=== PATIENT | male | born 1980 | race Caucasian/White ===

== ENCOUNTER 2018-04-20 02:58 | Emergency (ER) | payer MEDICAID ==
[~2018-04-20] VITALS: Ht 172.7 cm; Wt 63.6 kg
[2018-04-20 03:02] VITALS: BP 126/84
[2018-04-20] MEDS ORDERED: normal saline 1000ML IV soln IVB ONE (03:15)
[2018-04-20 03:29] LABS: BASOPHILS # (AUTO) 0.1 X10'3 (0-0.2); BASOPHILS % (AUTO) 0.5 % (0-1); EOSINOPHILS # (AUTO) 0.2 X10'3 (0-0.9); EOSINOPHILS % (AUTO) 1.9 % (0-6); HEMATOCRIT 45.8 % (42.0-52.0); HEMOGLOBIN 15.3 g/dl (14.0-17.9); LYMPHOCYTES # (AUTO) 0.9 X10'3 (1.1-4.8); LYMPHOCYTES % (AUTO) 7.7 % (21-51); MEAN CORPUSCULAR HGB CONC 33.5 % (33.0-36.5); MEAN CORPUSCULAR VOLUME 89.5 FL (78-98); MEAN PLATELET VOLUME 7.5 FL (7.4-10.4); MONOCYTES # (AUTO) 0.7 X10'3 (0-0.9); NEUTROPHILS # (AUTO) 9.5 X10'3 (1.8-7.7); NEUTROPHILS % (AUTO) 83.9 % (42-75); PLATELET COUNT 412 X10'3 (140-440); RED BLOOD COUNT 5.11 X10'6 (4.70-6.10); WHITE BLOOD COUNT 11.3 X10'3 (4.5-11.0)
[2018-04-20 03:38] LABS: CLARITY,URINE CLEAR (Clear); COLOR,URINE YELLOW (Yellow); GLUCOSE, URINE >=1000 mg/dl (Neg); KETONES,URINE 40 mg/dl (Neg); LEUKOCYTE ESTERASE ,URINE NEGATIVE (Neg); NITRITES, URINE NEGATIVE (Neg); OCCULT BLOOD,URINE NEGATIVE (Neg); PROTEIN,URINE NEGATIVE (Neg); UA COLLECTION TYPE CLN CATCH MIDSTREAM; UROBILINOGEN,URINE 0.2 E.U/dL (0.2-1.0)
[2018-04-20 03:44] LABS: ALANINE AMINOTRANSFERASE 28 U/L (12-78); ALBUMIN 3.8 G/DL (3.4-5.0); ALKALINE PHOSPHATASE 106 IU/L (46-116); ANION GAP 20 (8-16); ASPARTATE AMINO TRANSFERASE 18 U/L (10-37); BILIRUBIN,TOTAL 0.7 MG/DL (0.1-1.0); BLOOD UREA NITROGEN 25 MG/DL (7-18); BUN/CREATININE RATIO 16.4 (5.4-32.0); CALCIUM 9.4 MG/DL (8.5-10.1); CHLORIDE 87 MMOL/L (99-107); CREATININE 1.52 MG/DL (0.60-1.10); LIPASE 68 U/L (73-393); PHOSPHORUS 5.3 MG/DL (2.3-4.5); POTASSIUM 4.7 MMOL/L (3.5-5.1); SODIUM 129 MMOL/L (135-145); TOTAL CARBON DIOXIDE 22.3 MMOL/L (24-32); TOTAL PROTEIN 7.5 G/DL (6.4-8.2); eGFR 51 ML/MIN
[2018-04-20 03:46] LABS: BACTERIA,URINE NONE SEEN /HPF (Neg); MUCUS STRANDS NONE SEEN /LPF (Neg); RBC,URINE NONE SEEN /HPF (0-2); SQUAMOUS EPITHELIAL CELL,UR FEW /LPF (FEW); WBC,URINE NONE SEEN /HPF (0-4)
[2018-04-20 03:48] LABS: GLUCOSE 711 MG/DL (70-104)
[2018-04-20] MEDS ORDERED: insulin regular, DKA only 100 UNIT in normal saline 100ml IV soln 99 ML IV SCH ×2 (03:50)
[2018-04-20] MEDS ORDERED: mag hydrox/Alum hydrox/simeth 30ml oral suspension PO ONE (04:55)
== END 2018-04-20 05:42 | disposition left against medical advice (07) ==
LOC: ER 02:59
DX: E11.10 Type 2 diabetes mellitus with ketoacidosis without coma (principal); F15.90 Other stimulant use, unspecified, uncomplicated
CPT/HCPCS: 36415; 80053; 81001; 82800; 82947; 82948; 83690; 84100; 85025; 96365; 99284; A6257; J1815; J7030

== ENCOUNTER 2019-04-18 01:04 | Emergency (ER) | payer MEDICAID ==
[~2019-04-18] VITALS: Ht 172.7 cm; Wt 45.5 kg
[~2019-04-18 01:04] MED LIST: GLARGINE INSULIN SQ; NICO-631 TD; RANI150C4 PO; [UNRECOGNIZED DRUG - OTHER] SQ
[2019-04-18] MEDS ORDERED: ketorolac trometh inj. 60 MG/2 ML VIAL IM ONE (01:50)
[2019-04-18] MEDS ORDERED: ondansetron 4mg rapidly disintigrating tab PO ONE (01:50)
--- NOTE | 2019-04-18 01:59 | NUR ---
Back from CT.
[2019-04-18 02:21] LABS: BASOPHILS % (AUTO) 0.5 % (0-1); EOSINOPHILS # (AUTO) 0.1 X10'3 (0-0.9); EOSINOPHILS % (AUTO) 0.9 % (0-6); HEMATOCRIT 40.7 % (42.0-52.0); HEMOGLOBIN 14.2 g/dl (14.0-17.9); LYMPHOCYTES # (AUTO) 1.2 X10'3 (1.1-4.8); LYMPHOCYTES % (AUTO) 14.5 % (21-51); MEAN CORPUSCULAR HEMOGLOBIN 30.5 PG (27.0-31.0); MEAN CORPUSCULAR HGB CONC 34.9 g/dL (33.0-36.5); MEAN CORPUSCULAR VOLUME 87.5 FL (78-98); MEAN PLATELET VOLUME 7.3 FL (7.4-10.4); MONOCYTES # (AUTO) 0.8 X10'3 (0-0.9); MONOCYTES % (AUTO) 10.3 % (2-12); NEUTROPHILS % (AUTO) 73.8 % (42-75); PLATELET COUNT 350 X10'3 (140-440); RED BLOOD COUNT 4.64 X10'6 (4.70-6.10); RED CELL DISTRIBUTION WIDTH 12.2 % (11.5-14.5); WHITE BLOOD COUNT 8.1 X10'3 (4.5-11.0)
--- NOTE | 2019-04-18 02:21 | NUR ---
Patient laying on gurney, still reports abdominal pain/nausea. Zofran and Toradol were given, I will continue to monitor.
[2019-04-18 02:36] LABS: ALANINE AMINOTRANSFERASE 20 U/L (12-78); ALBUMIN 3.3 G/DL (3.4-5.0); ALBUMIN/GLOBULIN RATIO 0.7 (1.1-1.5); ALKALINE PHOSPHATASE 116 IU/L (46-116); ANION GAP 9 (8-16); ASPARTATE AMINO TRANSFERASE 13 U/L (10-37); BILIRUBIN,TOTAL 0.4 MG/DL (0.1-1.0); BLOOD UREA NITROGEN 13 MG/DL (7-18); BUN/CREATININE RATIO 14.9 (5.4-32.0); CALCIUM 9.3 MG/DL (8.5-10.1); CHLORIDE 98 MMOL/L (99-107); CREATININE 0.87 MG/DL (0.60-1.10); GLUCOSE 265 MG/DL (70-104); LIPASE 485 U/L (73-393); POTASSIUM 3.8 MMOL/L (3.5-5.1); SODIUM 136 MMOL/L (135-145); TOTAL CARBON DIOXIDE 29.4 MMOL/L (24-32); TOTAL PROTEIN 7.8 G/DL (6.4-8.2); eGFR > 90 ML/MIN
[2019-04-18] MEDS ORDERED: normal saline 1000ML IV soln IVB ONE (02:55)
[2019-04-18] MEDS ORDERED: morphine 4 MG/ML inj SYRINge IV ONE (02:55)
[2019-04-18] MEDS ORDERED: ondansetron/PF 4mg/2ml inj IV ONE (02:55)
[2019-04-18 03:01] LABS: CLARITY,URINE CLEAR (Clear); COLOR,URINE YELLOW (Yellow); GLUCOSE, URINE >=1000 mg/dl (Neg); KETONES,URINE 15 mg/dl (Neg); LEUKOCYTE ESTERASE ,URINE NEGATIVE (Neg); NITRITES, URINE NEGATIVE (Neg); OCCULT BLOOD,URINE NEGATIVE (Neg); PROTEIN,URINE NEGATIVE (Neg)
[2019-04-18 03:17] LABS: UA COLLECTION TYPE CLN CATCH MIDSTREAM
[2019-04-18 03:26] LABS: BACTERIA,URINE NONE SEEN /HPF (Neg); MUCUS STRANDS NONE SEEN /LPF (Neg); RBC,URINE 0-2 /HPF (0-2); SQUAMOUS EPITHELIAL CELL,UR NONE SEEN /LPF (FEW); WBC,URINE 0-4 /HPF (0-4)
[2019-04-18] MEDS ORDERED: HYDR-3965 PO (03:40)
[2019-04-18 03:43] VITALS: BP 131/79
== END 2019-04-18 03:48 | disposition home or self-care (01) ==
LOC: ER 01:05
DX: K85.90 Acute pancreatitis without necrosis or infection, unspecified (principal); E11.65 Type 2 diabetes mellitus with hyperglycemia; K02.9 Dental caries, unspecified; K21.9 Gastro-esophageal reflux disease without esophagitis; F17.200 Nicotine dependence, unspecified, uncomplicated; F12.90 Cannabis use, unspecified, uncomplicated; F15.90 Other stimulant use, unspecified, uncomplicated; F10.99 Alcohol use, unspecified with unspecified alcohol-induced disorder; Z79.899 Other long term (current) drug therapy; Y90.9 Presence of alcohol in blood, level not specified
CPT/HCPCS: 36415; 74176; 80053; 81001; 82948; 83690; 85025; 96372; 96374; 96375; 99284; J1885; J2270; J2405; J7030

== ENCOUNTER 2019-04-20 19:38 | Emergency (ER) | payer MEDICAID ==
[~2019-04-20] VITALS: Ht 172.7 cm; Wt 61.7 kg
[~2019-04-20 19:38] MED LIST changes: +HYDR-3965 PO
[2019-04-20 20:16] LABS: CLARITY,URINE SLIGHTLY CLOUDY (Clear); COLOR,URINE YELLOW (Yellow); GLUCOSE, URINE >=1000 mg/dl (Neg); KETONES,URINE NEGATIVE (Neg); LEUKOCYTE ESTERASE ,URINE NEGATIVE (Neg); NITRITES, URINE NEGATIVE (Neg); OCCULT BLOOD,URINE NEGATIVE (Neg); PH,URINE 7.5 (4.8-8.0); PROTEIN,URINE NEGATIVE (Neg); UA COLLECTION TYPE CLN CATCH MIDSTREAM
[2019-04-20 20:23] LABS: BACTERIA,URINE NONE SEEN /HPF (Neg); MUCUS STRANDS NONE SEEN /LPF (Neg); RBC,URINE NONE SEEN /HPF (0-2); SQUAMOUS EPITHELIAL CELL,UR NONE SEEN /LPF (FEW); WBC,URINE NONE SEEN /HPF (0-4)
[2019-04-20 20:24] LABS: AMORPHOUS PHOSPHATES 2+
[2019-04-20 20:43] LABS: BASOPHILS % (AUTO) 0.4 % (0-1); EOSINOPHILS # (AUTO) 0.2 X10'3 (0-0.9); EOSINOPHILS % (AUTO) 3.1 % (0-6); HEMATOCRIT 43.5 % (42.0-52.0); LYMPHOCYTES # (AUTO) 1.6 X10'3 (1.1-4.8); LYMPHOCYTES % (AUTO) 22.4 % (21-51); MEAN CORPUSCULAR HEMOGLOBIN 30.7 PG (27.0-31.0); MEAN CORPUSCULAR HGB CONC 34.6 g/dL (33.0-36.5); MEAN CORPUSCULAR VOLUME 88.8 FL (78-98); MEAN PLATELET VOLUME 7.3 FL (7.4-10.4); MONOCYTES # (AUTO) 0.7 X10'3 (0-0.9); MONOCYTES % (AUTO) 10.2 % (2-12); NEUTROPHILS # (AUTO) 4.5 X10'3 (1.8-7.7); NEUTROPHILS % (AUTO) 63.9 % (42-75); PLATELET COUNT 403 X10'3 (140-440); RED BLOOD COUNT 4.89 X10'6 (4.70-6.10); RED CELL DISTRIBUTION WIDTH 12.1 % (11.5-14.5); WHITE BLOOD COUNT 7.1 X10'3 (4.5-11.0)
[2019-04-20 20:59] LABS: ALANINE AMINOTRANSFERASE 22 U/L (12-78); ALBUMIN 3.4 G/DL (3.4-5.0); ALBUMIN/GLOBULIN RATIO 0.7 (1.1-1.5); ALKALINE PHOSPHATASE 128 IU/L (46-116); AMYLASE 30 U/L (25-115); ANION GAP 10 (8-16); ASPARTATE AMINO TRANSFERASE 11 U/L (10-37); BILIRUBIN,TOTAL 0.3 MG/DL (0.1-1.0); BLOOD UREA NITROGEN 13 MG/DL (7-18); BUN/CREATININE RATIO 14.3 (5.4-32.0); CALCIUM 9.4 MG/DL (8.5-10.1); CHLORIDE 99 MMOL/L (99-107); CREATININE 0.91 MG/DL (0.60-1.10); GLUCOSE 305 MG/DL (70-104); LIPASE 173 U/L (73-393); POTASSIUM 4.2 MMOL/L (3.5-5.1); SODIUM 138 MMOL/L (135-145); TOTAL CARBON DIOXIDE 28.8 MMOL/L (24-32); TOTAL PROTEIN 8.1 G/DL (6.4-8.2); eGFR > 90 ML/MIN
[2019-04-20] MEDS ORDERED: normal saline 1000ML IV soln IVB ONE (22:10)
[2019-04-20] MEDS ORDERED: morphine 4 MG/ML inj SYRINge IV ONE (22:10)
--- NOTE | 2019-04-20 22:43 | NUR ---
attempted IV x2, no success, another RN to try, pt is difficult IV start
[2019-04-20 23:57] VITALS: BP 105/70
== END 2019-04-21 | disposition home or self-care (01) ==
LOC: ER 19:38
DX: K85.90 Acute pancreatitis without necrosis or infection, unspecified (principal); K21.9 Gastro-esophageal reflux disease without esophagitis; E11.9 Type 2 diabetes mellitus without complications; F12.90 Cannabis use, unspecified, uncomplicated; F15.90 Other stimulant use, unspecified, uncomplicated; Z79.899 Other long term (current) drug therapy
CPT/HCPCS: 36415; 80053; 81001; 82150; 83690; 85025; 85610; 96374; 99283; J2270; J7030

== ENCOUNTER 2022-03-07 12:20 | Inpatient (IN) | payer MEDICAID ==
[~2022-03-07] VITALS: Ht 172.7 cm; Wt 60.1 kg
[~2022-03-07 12:20] MED LIST changes: -HYDR-3965 PO
[2022-03-07] MEDS ORDERED: ondansetron/PF 4mg/2ml inj IV ONE (13:10)
[2022-03-07] MEDS ORDERED: normal saline 1000ML IV soln IVB ONE (13:10)
[2022-03-07 13:55] LABS: ALANINE AMINOTRANSFERASE 79 U/L (12-78); ALBUMIN 3.8 G/DL (3.4-5.0); ALBUMIN/GLOBULIN RATIO 0.7 (1.1-1.5); ALKALINE PHOSPHATASE 230 IU/L (46-116); ANION GAP 31 (8-16); ASPARTATE AMINO TRANSFERASE 38 U/L (10-37); BILIRUBIN,TOTAL 0.6 MG/DL (0.1-1.0); BLOOD UREA NITROGEN 30 MG/DL (7-18); BUN/CREATININE RATIO 15.1 (5.4-32.0); CHLORIDE 96 MMOL/L (99-107); CREATININE 1.99 MG/DL (0.60-1.10); SODIUM 138 MMOL/L (135-145); TOTAL PROTEIN 8.9 G/DL (6.4-8.2); eGFR 37 ML/MIN
[2022-03-07 13:57] LABS: GLUCOSE 270 MG/DL (70-104); TOTAL CARBON DIOXIDE 11.3 MMOL/L (24-32)
[2022-03-07 14:23] LABS: ABG BASE EXCESS -13.7 mmol/L (-2.0-2.0); ABG HCO3 10.2 mmol/L (22.0-26.0); ABG OXYGEN SATURATION 97.7 % (94-97); ABG PCO2 (T) 20.8 mmHg (35.0-48.0); ABG PO2 (T) 109.2 mmHg (75.0-100.0); ALLEN'S TEST POSITIVE; FCOHb 0.3 % (0.0-3.9); FMetHb 0.1 % (0.0-1.5); FO2Hb 97.3 % (94-97); TOTAL HEMOGLOBIN 13.8 G/dl (14.0-18.0)
[2022-03-07 14:47] LABS: MAGNESIUM 2.1 MG/DL (1.5-2.4)
[2022-03-07 14:47] LABS: BASOPHILS % (AUTO) 0.1 % (0-1); EOSINOPHILS % (AUTO) 0 % (0-6); HEMATOCRIT 46.3 % (42.0-52.0); HEMOGLOBIN 15.9 g/dl (14.0-17.9); LYMPHOCYTES # (AUTO) 0.6 X10'3 (1.1-4.8); LYMPHOCYTES % (AUTO) 4.2 % (21-51); MEAN CORPUSCULAR HGB CONC 34.2 g/dL (33.0-36.5); MEAN CORPUSCULAR VOLUME 90.5 FL (78-98); MEAN PLATELET VOLUME 6.9 FL (7.4-10.4); MONOCYTES % (AUTO) 6.8 % (2-12); NEUTROPHILS # (AUTO) 12.5 X10'3 (1.8-7.7); NEUTROPHILS % (AUTO) 88.9 % (42-75); PLATELET COUNT 423 X10'3 (140-440); RED BLOOD COUNT 5.12 X10'6 (4.70-6.10); RED CELL DISTRIBUTION WIDTH 13.2 % (11.5-14.5); WHITE BLOOD COUNT 14.1 X10'3 (4.5-11.0)
[2022-03-07 14:50] LABS: ETHANOL < 0.010 GM/DL (0.0-0.010)
[2022-03-07] MEDS ORDERED: pantoprazole 40MG/NS 100ML BAG 100 ML IV STA (15:41)
--- NOTE | 2022-03-07 15:45 | NUR ---
PT PRODUCING DARK BROWN/BLACK EMESIS. PROVIDER NOTIFIED. PT REPORTS ABD PAIN.
[2022-03-07] MEDS ORDERED: INSU100I73 SQ (15:46)
[2022-03-07] MEDS ORDERED: GABA300C PO (15:46)
[2022-03-07] MEDS ORDERED: INSU100V40 SQ (15:46)
[2022-03-07 16:21] LABS: URINE AMPHETAMINE SCREEN POSITIVE (Neg); URINE BARBITUATE SCREEN NEGATIVE (Neg); URINE BENZODIAZEPINES SCREEN NEGATIVE (Neg); URINE CANNABINOID SCREEN NEGATIVE (Neg); URINE COCAINE SCREEN NEGATIVE (Neg); URINE METHADONE SCREEN NEGATIVE (Neg); URINE OPIATE SCREEN NEGATIVE (Neg); URINE PHENCYCLIDINE SCREEN NEGATIVE (Neg)
[2022-03-07] MEDS ORDERED: insulin regular, human U-100 3ml vial - multi-dose IV PRN (16:40)
[2022-03-07] MEDS ORDERED: potassium Cl 40MEQ/1/2NS 520ml 520 ML IV PRN ×2 (16:40)
[2022-03-07] MEDS ORDERED: sodium phosphate inj. 30 MMOL in dextrose 5%-water 250 ML IV PRN (16:40)
[2022-03-07] MEDS ORDERED: sodium phosphate inj. 15 MMOL in dextrose 5%-water 250 ML IV PRN (16:40)
[2022-03-07] MEDS ORDERED: sodium bicarbonate (8.4%) inj. 50 MEQ in dextrose 5% water 500ml 250 ML IV PRN (16:40)
[2022-03-07] MEDS ORDERED: sodium bicarbonate (8.4%) inj. 100 MEQ in dextrose 5% water 500ml 500 ML IV PRN (16:40)
[2022-03-07] MEDS ORDERED: potassium Cl 20 mEq SR tablet PO PRN ×2 (16:40)
[2022-03-07] MEDS ORDERED: Insulin Reg/NS 100units/100mL 100 ML IV SCH (16:40)
[2022-03-07] MEDS ORDERED: Neutra Phos packet PO PRN (16:40)
[2022-03-07] MEDS ORDERED: magnesium hydroxide 30ml (MOM) UD suspension PO PRN (16:45)
[2022-03-07] MEDS ORDERED: potassium CL 10mEq/100ml bag 100 ML IV PRN (16:45)
[2022-03-07] MEDS ORDERED: magnesium Cl slow-release 64mg tablet PO PRN (16:45)
[2022-03-07] MEDS ORDERED: sodium bicarbonate (8.4%) 1 mEq/ml syringe IV ONE (16:45)
[2022-03-07] MEDS ORDERED: magnesium 2GM in 50ml NS 50 ML IV PRN (16:45)
[2022-03-07] MEDS ORDERED: ondansetron/PF 4mg/2ml inj IV PRN (16:45)
[2022-03-07] MEDS ORDERED: magnesium 4gm in 100ml NS 100 ML IV PRN (16:45)
[2022-03-07] MEDS ORDERED: acetaminophen 325mg tablet PO PRN (16:45)
[2022-03-07] MEDS ORDERED: POTASSIUM BICARB 20meq eff tab 20 MEQ TABLET.EFF PO PRN ×2 (16:45)
[2022-03-07] MEDS: normal saline 1000ml 1,000 ML IV SCH ×4 (17:19→21:00)
[2022-03-07 18:03] LABS: ALBUMIN 2.8 G/DL (3.4-5.0); ANION GAP 18 (8-16); BLOOD UREA NITROGEN 27 MG/DL (7-18); BUN/CREATININE RATIO 19.6 (5.4-32.0); CALCIUM 8.3 MG/DL (8.5-10.1); CHLORIDE 102 MMOL/L (99-107); CREATININE 1.38 MG/DL (0.60-1.10); GLUCOSE 263 MG/DL (70-104); PHOSPHORUS 3.6 MG/DL (2.3-4.5); POTASSIUM 4.3 MMOL/L (3.5-5.1); SODIUM 136 MMOL/L (135-145); TOTAL CARBON DIOXIDE 16.1 MMOL/L (24-32); eGFR 56 ML/MIN
[2022-03-07] MEDS: potassium CL 20mEq in D5-1/2NS 1,000 ML IV PRN (19:20)
[2022-03-07] MEDS ORDERED: K and/or MAG REPLACEMENT MC SCH (20:00)
[2022-03-07 20:37] VITALS: BP 114/68
[2022-03-07] MEDS: docusate sod 100mg capsule PO SCH (21:00)
[2022-03-07 21:13] LABS: ALBUMIN 2.6 G/DL (3.4-5.0); ANION GAP 13 (8-16); BLOOD UREA NITROGEN 23 MG/DL (7-18); BUN/CREATININE RATIO 16.1 (5.4-32.0); CALCIUM 7.6 MG/DL (8.5-10.1); CHLORIDE 105 MMOL/L (99-107); CREATININE 1.43 MG/DL (0.60-1.10); GLUCOSE 160 MG/DL (70-104); PHOSPHORUS 2.1 MG/DL (2.3-4.5); POTASSIUM 3.8 MMOL/L (3.5-5.1); SODIUM 138 MMOL/L (135-145); TOTAL CARBON DIOXIDE 19.6 MMOL/L (24-32); eGFR 54 ML/MIN
[2022-03-07] MEDS: K and/or MAG REPLACEMENT MC SCH (22:00)
[2022-03-07 22:57] VITALS: BP 113/63
--- NOTE | 2022-03-08 00:22 | NUR ---
Called and spoke with Dr Sotelo in regards to pt's pain and still remaining NPO on on insulin drip. Reviewed last CO2 and gap and next lab at 0100. gave new order for [place] x1 and ok for sips with meds. See charting for details.
[2022-03-08] MEDS ORDERED: HYDROcodone/acetaminophen 5mg/325mg tablet PO ONE (00:30)
[2022-03-08] MEDS: mag hydrox/Alum hydrox/simeth 30ml oral suspension PO PRN ×3 (00:52→19:07)
--- NOTE | 2022-03-08 01:27 | NUR ---
Called Dr. Sotelo in regards to last BS 70 and pt continues to be on insulin drip at 5ml/hr. Also informed that staff is having hard time getting labs. New order given to decrease insulin to 2ml/hr. See orders for details. Addendum: 03/08/22 at 0650 by Waldo Coley RN Corrected *5 units/hr--
[2022-03-08] MEDS: potassium CL 20mEq in D5-1/2NS 1,000 ML IV PRN ×3 (01:33→12:15)
[2022-03-08 02:00] VITALS: BP 96/64
[2022-03-08] MEDS ORDERED: Insulin Reg/NS 100units/100mL 100 ML IV SCH ×2 (02:55→03:45)
--- NOTE | 2022-03-08 03:38 | NUR ---
Called and spoke with Dr. Sotelo in regards to BS 72, still on insulin drip at 2 units/hr. Also informed him unable to get labs and lab staff will try at 0400. New order to decrease insulin drip to 1 unit/hr. See charting for details.
[2022-03-08] MEDS ORDERED: dextrose 50%-water 50ml dispensing syringe IV PRN ×3 (03:45→12:40)
[2022-03-08 04:45] LABS: ALBUMIN 2.5 G/DL (3.4-5.0); ANION GAP 11 (8-16); BLOOD UREA NITROGEN 16 MG/DL (7-18); BUN/CREATININE RATIO 15.8 (5.4-32.0); CALCIUM 7.7 MG/DL (8.5-10.1); CHLORIDE 107 MMOL/L (99-107); CREATININE 1.01 MG/DL (0.60-1.10); GLUCOSE 113 MG/DL (70-104); MAGNESIUM 1.6 MG/DL (1.5-2.4); PHOSPHORUS 1.9 MG/DL (2.3-4.5); POTASSIUM 3.8 MMOL/L (3.5-5.1); SODIUM 140 MMOL/L (135-145); eGFR 80 ML/MIN
--- NOTE | 2022-03-08 05:35 | NUR ---
Called and spoke with Dr. Sotelo in regards to BS at 131 and labs came back with anion gap 11, Co2 22. stated to continue drip at this time. No new orders given.
[2022-03-08 06:00] VITALS: BP 116/79
--- NOTE | 2022-03-08 06:39 | NUR ---
2015 Got report from PATRICIA Do. Pt arrived via gurney in no acute distress. Belongings at bedside. Pt in no acute distress but sleepy. Pt had uneventful night but remained on insulin drip. Pt got [place] x1 and Maalox. 0625 Report given to PATRICIA Estrella. Drips verified in room. Questions answered. Endorsed to nurse pt sleepy and unable to finish all of admission and family hopefully to come in and take home meds today. Questions answered. Pt in no acute distress at time of handoff.
[2022-03-08] MEDS: K and/or MAG REPLACEMENT MC SCH (08:00)
[2022-03-08] MEDS: docusate sod 100mg capsule PO SCH ×2 (08:00→19:07)
[2022-03-08 11:00] VITALS: BP 110/69
--- NOTE | 2022-03-08 11:35 | NUR ---
[id number] MESSAGE: [id number] Renny Guy Anion Gap is 11. CO2 is 22. Blood Glucose levels are steadily at less than 200. Pt. is NPO. Will you be writing for meals? Insulin drip continues at 1ml/hour. D5 with 1/2 NS is running at [id number]. Jenna Jaramillo RN [phone]
--- NOTE | 2022-03-08 12:39 | NUR ---
ORDERS TO STOP INSULIN GTT AND START ON HYPERGLYCEMIA/HYPOGLYCEMIA PROTOCOL PUT IN PER DR. GRIFFIN.
[2022-03-08] MEDS ORDERED: glucagon, human recombinant 1mg kit SUBCUT PRN (12:40)
[2022-03-08] MEDS ORDERED: DEXTROSE 15 GM of carb/4 tabs (each vial/BOTTLE has 4 tablets) PO PRN ×2 (12:40)
[2022-03-08] MEDS ORDERED: MESSAGE TO PHARMACY PO ONE (12:40)
[2022-03-08 12:52] LABS: HEMOGLOBIN A1C 12.5 % (4.5-6.2)
[2022-03-08] MEDS: insulin Lispro (HumaLOG) vial - multi-dose SQ SCH ×2 (13:55→19:11)
[2022-03-08 15:00] VITALS: BP 114/79
[2022-03-08 18:00] VITALS: BP 120/96
--- NOTE | 2022-03-08 18:40 | NUR ---
Patient in room PCU 3021. I have received report from Delores GOMEZ and had the opportunity to ask questions and assume patient care.
[2022-03-08] MEDS ORDERED: insulin glargine (Lantus) pen - multi-dose SQ SCH (21:00)
--- NOTE | 2022-03-08 21:30 | NUR ---
Dr. Hardy Paged [phone] [address] 44. admit 03/06 for DKA. pt c/o sore throat wanting chloraseptic spray. please consult. Una RN PCU [id number]
[2022-03-08] MEDS ORDERED: Chloraseptic (Phenol) Spray 177ml MM PRN (21:50)
--- NOTE | 2022-03-08 21:51 | NUR ---
new orders given, frq monitoring
[2022-03-08 22:00] VITALS: BP 151/87
[2022-03-09 02:00] VITALS: BP 126/86
[2022-03-09 06:00] VITALS: BP 130/92
--- NOTE | 2022-03-09 06:23 | NUR ---
Problems reprioritized. Patient report given, questions answered & plan of care reviewed with Delores GOMEZ.
--- NOTE | 2022-03-09 06:24 | NUR ---
Patient in room PCU 3021. I have received report from Una GOMEZ and had the opportunity to ask questions and assume patient care.
[2022-03-09] MEDS: docusate sod 100mg capsule PO SCH (08:00)
[2022-03-09 09:09] LABS: MAGNESIUM 1.9 MG/DL (1.5-2.4); POTASSIUM 3.6 MMOL/L (3.5-5.1)
[2022-03-09] MEDS: insulin Lispro (HumaLOG) vial - multi-dose SQ SCH ×2 (09:19→13:44)
--- NOTE | 2022-03-09 09:54 | NUR ---
Diabetes consult: Pt w/ hx of T1DM A1c 12.5 per EMR. Pt sleeping at time of assessment, written DM ed w/ RD contact info placed at bedside. Addendum: 03/09/22 at [address] Amended: Links added.
[2022-03-09] MEDS ORDERED: INSU100I73 SQ (10:39)
[2022-03-09] MEDS ORDERED: INSU100V40 SQ (10:39)
[2022-03-09] MEDS ORDERED: PANT40SU2 PO (10:45)
[2022-03-09 11:00] VITALS: BP 139/92
== END 2022-03-09 13:58 | disposition home or self-care (01) | DRG 420 ==
LOC: ER 12:21 → ED HOLD 16:47 → UNDOADMIN 17:29 → EDBEDREQ 19:39 → PCU 3S 20:20 → ED HOLD 20:20 → UNDODISIN 03-09 13:58
PROVIDERS: ADMIT Internal Medicine; ATTEND Internal Medicine
DX: E10.10 Type 1 diabetes mellitus with ketoacidosis without coma (principal); G93.41 Metabolic encephalopathy; N17.9 Acute kidney failure, unspecified; Z20.822 Contact with and (suspected) exposure to COVID-19; T38.3X6A Underdosing of insulin and oral hypoglycemic [antidiabetic] drugs, initial encounter; F15.10 Other stimulant abuse, uncomplicated; K21.9 Gastro-esophageal reflux disease without esophagitis; Z79.4 Long term (current) use of insulin; Z91.14 Patient's other noncompliance with medication regimen
CPT/HCPCS: 36415; 36600; 80048; 80053; 80305; 80320; 82009; 82803; 82948; 83036; 83735; 84100; 84132; 85018; 85025; 87081; 87635; 96361; 96374; 99285; C9113; C9803; G0378; J1815; J2405; J3480; J7030

== ENCOUNTER 2023-01-28 11:41 | Emergency (ER) | payer MEDICAID ==
[~2023-01-28] VITALS: Ht 172.7 cm; Wt 61.4 kg
[~2023-01-28 11:41] MED LIST changes: -GLARGINE INSULIN SQ; +INSU100I73 SQ; +INSU100V40 SQ; -NICO-631 TD; +PANT40SU2 PO; -RANI150C4 PO; -[UNRECOGNIZED DRUG - OTHER] SQ
[2023-01-28 11:56] VITALS: BP 131/93
[2023-01-28] MEDS ORDERED: insulin regular, human 10 units/0.1 ml syringe SQ ONE (12:10)
[2023-01-28 12:38] LABS: BASOPHILS # (AUTO) 0.1 X10'3 (0-0.2); BASOPHILS % (AUTO) 0.9 % (0-1); EOSINOPHILS # (AUTO) 0.1 X10'3 (0-0.9); EOSINOPHILS % (AUTO) 2.3 % (0-6); HEMATOCRIT 43.8 % (42.0-52.0); HEMOGLOBIN 14.5 g/dl (14.0-17.9); LYMPHOCYTES # (AUTO) 1.4 X10'3 (1.1-4.8); LYMPHOCYTES % (AUTO) 25.8 % (21-51); MEAN CORPUSCULAR HGB CONC 33.1 g/dL (33.0-36.5); MEAN CORPUSCULAR VOLUME 90.9 FL (78-98); MEAN PLATELET VOLUME 7.2 FL (7.4-10.4); MONOCYTES # (AUTO) 0.5 X10'3 (0-0.9); MONOCYTES % (AUTO) 9.6 % (2-12); NEUTROPHILS # (AUTO) 3.4 X10'3 (1.8-7.7); NEUTROPHILS % (AUTO) 61.4 % (42-75); PLATELET COUNT 306 X10'3 (140-440); RED BLOOD COUNT 4.82 X10'6 (4.70-6.10); RED CELL DISTRIBUTION WIDTH 13.9 % (11.5-14.5); WHITE BLOOD COUNT 5.6 X10'3 (4.5-11.0)
--- NOTE | 2023-01-28 12:48 | NUR ---
LAST METH USE LAST NIGHT, SMOKED IT.
[2023-01-28 13:01] LABS: ALANINE AMINOTRANSFERASE 39 U/L (12-78); ALBUMIN 3.7 G/DL (3.4-5.0); ALBUMIN/GLOBULIN RATIO 0.9 (1.1-1.5); ALKALINE PHOSPHATASE 133 IU/L (46-116); ANION GAP 11 (8-16); ASPARTATE AMINO TRANSFERASE 40 U/L (10-37); BILIRUBIN,TOTAL 0.3 MG/DL (0.1-1.0); BLOOD UREA NITROGEN 25 MG/DL (7-18); BUN/CREATININE RATIO 21.9 (10.0-20.0); CALCIUM 9.6 MG/DL (8.5-10.1); CHLORIDE 103 MMOL/L (99-107); CREATININE 1.14 MG/DL (0.60-1.10); POTASSIUM 4.7 MMOL/L (3.5-5.1); SODIUM 138 MMOL/L (135-145); TOTAL CARBON DIOXIDE 24.4 MMOL/L (24-32); TOTAL PROTEIN 7.7 G/DL (6.4-8.2); eGFR 69 ML/MIN
[2023-01-28 13:05] LABS: GLUCOSE 471 MG/DL (70-104)
== END 2023-01-28 13:23 ==
LOC: ER 11:41
DX: E11.65 Type 2 diabetes mellitus with hyperglycemia (principal); E86.0 Dehydration; H54.7 Unspecified visual loss; F12.90 Cannabis use, unspecified, uncomplicated; F15.90 Other stimulant use, unspecified, uncomplicated; Z91.148 Patient's other noncompliance with medication regimen for other reason; Z72.89 Other problems related to lifestyle; Z87.19 Personal history of other diseases of the digestive system; Z79.4 Long term (current) use of insulin; Z79.899 Other long term (current) drug therapy
CPT/HCPCS: 36415; 80053; 82948; 85025; 96372; 99284; J1815

== ENCOUNTER 2023-06-27 03:06 | Inpatient (IN) | payer MEDICAID ==
[~2023-06-27] VITALS: Ht 172.7 cm; Wt 61.1 kg
[2023-06-27] MEDS ORDERED: ondansetron/PF 4mg/2ml inj IV ONE (03:50)
[2023-06-27] MEDS: normal saline 1000ml 1,000 ML IV SCH ×4 (03:51→07:59)
[2023-06-27] MEDS ORDERED: proCHLORperazine 10 MG/2 ml inj IV ONE (04:05)
[2023-06-27 04:22] LABS: BASOPHILS # (AUTO) 0.1 X10'3 (0-0.2); BASOPHILS % (AUTO) 0.4 % (0-1); EOSINOPHILS % (AUTO) 0.1 % (0-6); HEMOGLOBIN 13.4 g/dl (14.0-17.9); LYMPHOCYTES # (AUTO) 0.9 X10'3 (1.1-4.8); LYMPHOCYTES % (AUTO) 4.6 % (21-51); MEAN CORPUSCULAR HEMOGLOBIN 30.1 PG (27.0-31.0); MEAN CORPUSCULAR HGB CONC 32.7 g/dL (33.0-36.5); MEAN CORPUSCULAR VOLUME 91.8 FL (78-98); MEAN PLATELET VOLUME 8.1 FL (7.4-10.4); MONOCYTES # (AUTO) 1.6 X10'3 (0-0.9); MONOCYTES % (AUTO) 7.8 % (2-12); NEUTROPHILS # (AUTO) 17.5 X10'3 (1.8-7.7); NEUTROPHILS % (AUTO) 87.1 % (42-75); PLATELET COUNT 348 X10'3 (140-440); RED BLOOD COUNT 4.46 X10'6 (4.70-6.10); RED CELL DISTRIBUTION WIDTH 13.5 % (11.5-14.5); WHITE BLOOD COUNT 20.1 X10'3 (4.5-11.0)
[2023-06-27 04:37] LABS: ALANINE AMINOTRANSFERASE 48 U/L (12-78); ALBUMIN 2.9 G/DL (3.4-5.0); ALBUMIN/GLOBULIN RATIO 0.5 (1.1-1.5); ALKALINE PHOSPHATASE 241 IU/L (46-116); ANION GAP 25 (8-16); ASPARTATE AMINO TRANSFERASE 27 U/L (10-37); BILIRUBIN,TOTAL 0.8 MG/DL (0.1-1.0); BLOOD UREA NITROGEN 25 MG/DL (7-18); BUN/CREATININE RATIO 16.1 (10.0-20.0); CALCIUM 9.1 MG/DL (8.5-10.1); CHLORIDE 87 MMOL/L (99-107); CREATININE 1.55 MG/DL (0.60-1.10); PHOSPHORUS 3.9 MG/DL (2.3-4.5); POTASSIUM 4.8 MMOL/L (3.5-5.1); SODIUM 122 MMOL/L (135-145); TOTAL PROTEIN 8.2 G/DL (6.4-8.2); eCRCL 52 ML/MIN; eGFR 49 ML/MIN
[2023-06-27 04:41] LABS: GLUCOSE 528 MG/DL (70-104)
[2023-06-27 04:42] LABS: TOTAL CARBON DIOXIDE 10.3 MMOL/L (24-32)
[2023-06-27] MEDS ORDERED: Neutra Phos packet PO PRN (04:45)
[2023-06-27] MEDS ORDERED: Insulin Reg/NS 100units/100mL 100 ML IV SCH (04:45)
[2023-06-27] MEDS ORDERED: potassium CL 20mEq in D5-1/2NS 1,000 ML IV PRN (04:45)
[2023-06-27] MEDS ORDERED: potassium Cl 20 mEq SR tablet PO PRN ×2 (04:45)
[2023-06-27] MEDS ORDERED: insulin regular, human 10 units/0.1 ml syringe IV ONE (04:45)
[2023-06-27] MEDS ORDERED: sodium phosphate inj. 30 MMOL in dextrose 5%-water 250 ML IV PRN (04:45)
[2023-06-27] MEDS ORDERED: sodium phosphate inj. 15 MMOL in dextrose 5%-water 250 ML IV PRN (04:45)
[2023-06-27] MEDS ORDERED: sodium bicarbonate (8.4%) inj. 100 MEQ in dextrose 5% water 500ml 500 ML IV PRN (04:45)
[2023-06-27] MEDS ORDERED: potassium Cl 40MEQ/1/2NS 520ml 520 ML IV PRN ×2 (04:45)
[2023-06-27] MEDS ORDERED: sodium bicarbonate (8.4%) inj. 50 MEQ in dextrose 5% water 500ml 250 ML IV PRN (04:45)
[2023-06-27 05:05] LABS: ABG BASE EXCESS -21.4 mmol/L (-2.0-2.0); ABG HCO3 5.6 mmol/L (22.0-26.0); ABG OXYGEN SATURATION 97.6 % (94-97); ABG PCO2 (T) 16.9 mmHg (35.0-48.0); ABG PH (T) 7.136 (7.340-7.440); ABG PO2 (T) 117.7 mmHg (75.0-100.0); ALLEN'S TEST Modified; FCOHb 0.1 % (0.0-3.9); FHHb 2.4 % (0.0-5.0); FMetHb 0.4 % (0.0-1.5); FO2Hb 97.1 % (94-97); MODE ROOM AIR; TOTAL HEMOGLOBIN 12.2 G/dl (14.0-17.9)
[2023-06-27] MEDS: ringers solution, lacted 1,000 ML IV SCH ×2 (06:04→10:55)
[2023-06-27] MEDS: heparin, porcine 5000 units/ml vial SQ SCH ×2 (07:36→16:14)
[2023-06-27] MEDS: pantoprazole 40MG/NS 100ML BAG 100 ML IV SCH (07:37)
[2023-06-27] MEDS: K and/or MAG REPLACEMENT MC SCH ×2 (08:00→20:00)
[2023-06-27] MEDS ORDERED: pantoprazole 40 MG vial IV SCH (08:00)
[2023-06-27 08:14] LABS: ALBUMIN 2.4 G/DL (3.4-5.0); ANION GAP 26 (8-16); BLOOD UREA NITROGEN 28 MG/DL (7-18); BUN/CREATININE RATIO 19.9 (10.0-20.0); CALCIUM 8.6 MG/DL (8.5-10.1); CHLORIDE 95 MMOL/L (99-107); CREATININE 1.41 MG/DL (0.60-1.10); GLUCOSE 366 MG/DL (70-104); PHOSPHORUS 3.5 MG/DL (2.3-4.5); POTASSIUM 3.9 MMOL/L (3.5-5.1); SODIUM 130 MMOL/L (135-145); eCRCL 57 ML/MIN; eGFR 54 ML/MIN
[2023-06-27 08:18] LABS: TOTAL CARBON DIOXIDE 9.3 MMOL/L (24-32)
[2023-06-27] MEDS ORDERED: ringers solution, lacted 1,000 ML IV ONE ×2 (09:00→22:05)
[2023-06-27] MEDS ORDERED: dextrose 5%-1/2 normal saline 1,000 ML IV SCH (12:30)
[2023-06-27 13:38] LABS: ALBUMIN 2.2 G/DL (3.4-5.0); ANION GAP 11 (8-16); BLOOD UREA NITROGEN 23 MG/DL (7-18); BUN/CREATININE RATIO 20.5 (10.0-20.0); CALCIUM 8.2 MG/DL (8.5-10.1); CHLORIDE 100 MMOL/L (99-107); CREATININE 1.12 MG/DL (0.60-1.10); GLUCOSE 166 MG/DL (70-104); MAGNESIUM 1.6 MG/DL (1.5-2.4); POTASSIUM 3.7 MMOL/L (3.5-5.1); SODIUM 131 MMOL/L (135-145); TOTAL CARBON DIOXIDE 20.5 MMOL/L (24-32); eCRCL 72 ML/MIN; eGFR 71 ML/MIN
[2023-06-27] MEDS ORDERED: glucagon, human recombinant 1mg kit SUBCUT PRN (14:35)
[2023-06-27] MEDS ORDERED: MESSAGE TO PHARMACY PO ONE (14:35)
[2023-06-27] MEDS ORDERED: DEXTROSE 15 GM of carb/4 tabs (each vial/BOTTLE has 4 tablets) PO PRN ×2 (14:35)
[2023-06-27] MEDS ORDERED: dextrose 50%-water 50ml dispensing syringe IV PRN ×2 (14:35)
[2023-06-27 15:22] LABS: BILIRUBIN,URINE NEGATIVE (Neg); CLARITY,URINE SLIGHTLY CLOUDY (Clear); COLOR,URINE YELLOW (Yellow); GLUCOSE, URINE 500 mg/dl (Neg); KETONES,URINE >=80 mg/dl (Neg); LEUKOCYTE ESTERASE ,URINE NEGATIVE (Neg); NITRITES, URINE NEGATIVE (Neg); OCCULT BLOOD,URINE MODERATE (Neg); PH,URINE 5.5 (4.8-8.0); PROTEIN,URINE TRACE mg/dl (Neg); UROBILINOGEN,URINE 0.2 E.U/dL (0.2-1.0)
[2023-06-27 15:25] LABS: HEMOGLOBIN A1C > 12.0 % (4.5-6.2)
[2023-06-27 15:27] LABS: UA COLLECTION TYPE URINAL
[2023-06-27 15:34] LABS: RENAL CELLS, URINE FEW /HPF
[2023-06-27 15:35] LABS: BACTERIA,URINE 2+ /HPF (Neg); SQUAMOUS EPITHELIAL CELL,UR NONE SEEN /LPF (FEW)
[2023-06-27 15:39] LABS: ABG BASE EXCESS -4.8 mmol/L (-2.0-2.0); ABG HCO3 19.7 mmol/L (22.0-26.0); ABG OXYGEN SATURATION 97.2 % (94-97); ABG PCO2 (T) 34.4 mmHg (35.0-48.0); ABG PH (T) 7.375 (7.340-7.440); ABG PO2 (T) 88.8 mmHg (75.0-100.0); ALLEN'S TEST POSITIVE; FCOHb 0.3 % (0.0-3.9); FHHb 2.8 % (0.0-5.0); FMetHb 0.2 % (0.0-1.5); FO2Hb 96.7 % (94-97); MODE ROOM AIR; TOTAL HEMOGLOBIN 11.4 G/dl (14.0-17.9)
[2023-06-27] MEDS ORDERED: normal saline 1000ml 1,000 ML IV SCH (17:00)
[2023-06-27 18:30] VITALS: BP 104/68; PULSE 112; RESP 16; TEMP 100.1; O2SAT 97
[2023-06-27] MEDS ORDERED: insulin glargine (Lantus) pen - multi-dose SQ SCH (21:00)
[2023-06-27 22:00] VITALS: BP 122/70; PULSE 80; RESP 19; TEMP 97.7; O2SAT 93
[2023-06-27] MEDS: insulin Lispro (HumaLOG) vial - multi-dose SQ SCH (22:20)
[2023-06-28] MEDS: heparin, porcine 5000 units/ml vial SQ SCH (00:10)
[2023-06-28] MEDS ORDERED: PRED5DRO23 RIGHTEYE (00:50)
[2023-06-28] MEDS ORDERED: POLOS RIGHTEYE (00:50)
[2023-06-28 02:00] VITALS: BP 120/85; PULSE 105; RESP 14; TEMP 98; O2SAT 96
[2023-06-28 06:00] VITALS: BP 114/73; PULSE 110; RESP 18; TEMP 97.3; O2SAT 97
[2023-06-28 07:25] LABS: ALBUMIN 1.9 G/DL (3.4-5.0); ANION GAP 16 (8-16); BLOOD UREA NITROGEN 20 MG/DL (7-18); BUN/CREATININE RATIO 20.4 (10.0-20.0); CALCIUM 8.1 MG/DL (8.5-10.1); CHLORIDE 100 MMOL/L (99-107); CHOL/HDL RATIO 3.6 (0.00-4.99); CHOLESTEROL 138 MG/DL (0-200); CREATININE 0.98 MG/DL (0.60-1.10); GLUCOSE 280 MG/DL (70-104); HDL CHOLESTEROL 38 MG/DL (35-60); LDL CHOLESTEROL 66 MG/DL (50-100); PHOSPHORUS 2.2 MG/DL (2.3-4.5); POTASSIUM 3.7 MMOL/L (3.5-5.1); SODIUM 132 MMOL/L (135-145); TOTAL CARBON DIOXIDE 15.8 MMOL/L (24-32); TRIGLYCERIDES 230 MG/DL (20-135); eCRCL 82 ML/MIN; eGFR 83 ML/MIN
[2023-06-28 08:00] VITALS: RESP 18; O2SAT 97
[2023-06-28] MEDS: pantoprazole 40MG/NS 100ML BAG 100 ML IV SCH (08:22)
[2023-06-28 09:19] LABS: BASOPHILS # (AUTO) 0.2 X10'3 (0-0.2); BASOPHILS % (AUTO) 0.9 % (0-1); EOSINOPHILS % (AUTO) 0.1 % (0-6); HEMATOCRIT 32.2 % (42.0-52.0); HEMOGLOBIN 10.7 g/dl (14.0-17.9); LYMPHOCYTES # (AUTO) 1.3 X10'3 (1.1-4.8); MEAN CORPUSCULAR HEMOGLOBIN 29.8 PG (27.0-31.0); MEAN CORPUSCULAR HGB CONC 33.2 g/dL (33.0-36.5); MEAN CORPUSCULAR VOLUME 89.7 FL (78-98); MEAN PLATELET VOLUME 8.1 FL (7.4-10.4); MONOCYTES # (AUTO) 1.6 X10'3 (0-0.9); MONOCYTES % (AUTO) 8.6 % (2-12); NEUTROPHILS # (AUTO) 15.2 X10'3 (1.8-7.7); NEUTROPHILS % (AUTO) 83.4 % (42-75); PLATELET COUNT 333 X10'3 (140-440); RED BLOOD COUNT 3.59 X10'6 (4.70-6.10); RED CELL DISTRIBUTION WIDTH 13.7 % (11.5-14.5); WHITE BLOOD COUNT 18.3 X10'3 (4.5-11.0)
[2023-06-28] MEDS: insulin Lispro (HumaLOG) vial - multi-dose SQ SCH (09:33)
[2023-06-28 11:00] VITALS: BP 113/75; PULSE 117; RESP 18; TEMP 97.7; O2SAT 99
== END 2023-06-28 12:05 | disposition left against medical advice (07) | DRG 420 ==
LOC: ER 03:07 → ED HOLD 06:25 → PCU 3S 18:42
PROVIDERS: ADMIT Internal Medicine Critical Care Medicine; ATTEND Internal Medicine Critical Care Medicine
DX: E10.10 Type 1 diabetes mellitus with ketoacidosis without coma (principal); N17.9 Acute kidney failure, unspecified; R65.10 Systemic inflammatory response syndrome (SIRS) of non-infectious origin without acute organ dysfunction; E10.40 Type 1 diabetes mellitus with diabetic neuropathy, unspecified; E10.22 Type 1 diabetes mellitus with diabetic chronic kidney disease; D64.9 Anemia, unspecified; D72.829 Elevated white blood cell count, unspecified; N18.2 Chronic kidney disease, stage 2 (mild); N50.819 Testicular pain, unspecified; F17.210 Nicotine dependence, cigarettes, uncomplicated; K21.9 Gastro-esophageal reflux disease without esophagitis; Z53.21 Procedure and treatment not carried out due to patient leaving prior to being seen by health care provider; Z83.3 Family history of diabetes mellitus; Z79.4 Long term (current) use of insulin; Z79.899 Other long term (current) drug therapy; Z80.42 Family history of malignant neoplasm of prostate
CPT/HCPCS: 36415; 36600; 80048; 80053; 80061; 81001; 82803; 82948; 83036; 83605; 83735; 84100; 84145; 85018; 85025; 87040; 87077; 87081; 87088; 87186; 99285; C9113; G0378; J0780; J1644; J1815; J2405; J3480; J7030; J7120

== ENCOUNTER 2023-07-08 16:51 | Emergency (ER) | payer MEDICAID ==
[~2023-07-08] VITALS: Ht 172.7 cm; Wt 66.6 kg
[~2023-07-08 16:51] MED LIST changes: +POLOS RIGHTEYE; +PRED5DRO23 RIGHTEYE
[2023-07-09 00:12] LABS: BASOPHILS # (AUTO) 0.1 X10'3 (0-0.2); BASOPHILS % (AUTO) 1.1 % (0-1); EOSINOPHILS % (AUTO) 0 % (0-6); HEMATOCRIT 33.4 % (42.0-52.0); HEMOGLOBIN 11.1 g/dl (14.0-17.9); LYMPHOCYTES % (AUTO) 10.5 % (21-51); MEAN CORPUSCULAR HEMOGLOBIN 30.3 PG (27.0-31.0); MEAN CORPUSCULAR HGB CONC 33.3 g/dL (33.0-36.5); MEAN CORPUSCULAR VOLUME 90.9 FL (78-98); MEAN PLATELET VOLUME 6.6 FL (7.4-10.4); MONOCYTES # (AUTO) 0.2 X10'3 (0-0.9); MONOCYTES % (AUTO) 2.6 % (2-12); NEUTROPHILS % (AUTO) 85.8 % (42-75); PLATELET COUNT 579 X10'3 (140-440); RED BLOOD COUNT 3.67 X10'6 (4.70-6.10); RED CELL DISTRIBUTION WIDTH 14.8 % (11.5-14.5); WHITE BLOOD COUNT 9.3 X10'3 (4.5-11.0)
[2023-07-09 00:17] LABS: BILIRUBIN,URINE NEGATIVE (Neg); CLARITY,URINE CLOUDY (Clear); COLOR,URINE YELLOW (Yellow); GLUCOSE, URINE >=1000 mg/dl (Neg); KETONES,URINE NEGATIVE (Neg); LEUKOCYTE ESTERASE ,URINE MODERATE (Neg); NITRITES, URINE NEGATIVE (Neg); OCCULT BLOOD,URINE TRACE-INTACT (Neg); PH,URINE 7.5 (4.8-8.0); PROTEIN,URINE NEGATIVE (Neg); UROBILINOGEN,URINE 0.2 E.U/dL (0.2-1.0)
[2023-07-09 00:23] LABS: UA COLLECTION TYPE NON-SPECIFIED
[2023-07-09 00:24] LABS: ALANINE AMINOTRANSFERASE 30 U/L (12-78); ALBUMIN 2.4 G/DL (3.4-5.0); ALBUMIN/GLOBULIN RATIO 0.5 (1.1-1.5); ALKALINE PHOSPHATASE 165 IU/L (46-116); ANION GAP 11 (8-16); ASPARTATE AMINO TRANSFERASE 13 U/L (10-37); BILIRUBIN,TOTAL 0.1 MG/DL (0.1-1.0); BLOOD UREA NITROGEN 31 MG/DL (7-18); CALCIUM 8.7 MG/DL (8.5-10.1); CHLORIDE 93 MMOL/L (99-107); CREATININE 0.97 MG/DL (0.60-1.10); POTASSIUM 4.7 MMOL/L (3.5-5.1); SODIUM 128 MMOL/L (135-145); TOTAL CARBON DIOXIDE 24.3 MMOL/L (24-32); TOTAL PROTEIN 6.9 G/DL (6.4-8.2); eCRCL 91 ML/MIN; eGFR 84 ML/MIN
[2023-07-09 00:27] LABS: WBC,URINE 50-100 /HPF (0-4)
[2023-07-09 00:28] LABS: MUCUS STRANDS FEW /LPF (Neg); SQUAMOUS EPITHELIAL CELL,UR MODERATE /LPF (FEW)
[2023-07-09 00:29] LABS: BACTERIA,URINE 2+ /HPF (Neg); WBC CLUMPS,URINE FEW /HPF (NEGATIVE)
[2023-07-09 00:31] LABS: PRO BRAIN NATRIURETIC PEPTIDE 197 PG/ML (0-125)
[2023-07-09] MEDS ORDERED: insulin regular, human 10 units/0.1 ml syringe IV ONE (00:35)
[2023-07-09 00:48] LABS: GLUCOSE 429 MG/DL (70-104); LIPASE 14 U/L (16-77)
[2023-07-09 01:28] VITALS: BP 138/83; PULSE 89; RESP 16; TEMP 98.8; O2SAT 97
== END 2023-07-09 01:30 | disposition home or self-care (01) ==
LOC: ER 16:51
DX: R60.0 Localized edema (principal)
CPT/HCPCS: 36415; 80053; 81001; 82948; 83690; 83880; 85025; 87088; 96374; 99284; J1815

== ENCOUNTER 2023-12-26 23:37 | Emergency (ER) | payer MEDICAID ==
[~2023-12-26] VITALS: Ht 172.7 cm; Wt 59.1 kg
[~2023-12-26 23:37] MED LIST changes: -INSU100I73 SQ; +INSU100I99 SQ
[2023-12-27] MEDS: normal saline 1000ML IV soln IVB ONE (02:24)
[2023-12-27] MEDS: haloperidol lactate 5mg/ml inj IM ONE (02:25)
[2023-12-27 02:49] LABS: BASOPHILS % (AUTO) 0.5 % (0-1); EOSINOPHILS # (AUTO) 0.1 X10'3 (0-0.9); EOSINOPHILS % (AUTO) 1.1 % (0-6); HEMATOCRIT 37.5 % (42.0-52.0); HEMOGLOBIN 12.4 g/dl (14.0-17.9); LYMPHOCYTES # (AUTO) 1.5 X10'3 (1.1-4.8); LYMPHOCYTES % (AUTO) 28.8 % (21-51); MEAN CORPUSCULAR HEMOGLOBIN 28.3 PG (27.0-31.0); MEAN CORPUSCULAR HGB CONC 32.9 g/dL (33.0-36.5); MEAN PLATELET VOLUME 7.5 FL (7.4-10.4); MONOCYTES # (AUTO) 0.5 X10'3 (0-0.9); MONOCYTES % (AUTO) 9.9 % (2-12); NEUTROPHILS # (AUTO) 3.1 X10'3 (1.8-7.7); NEUTROPHILS % (AUTO) 59.7 % (42-75); PLATELET COUNT 313 X10'3 (140-440); RED BLOOD COUNT 4.36 X10'6 (4.70-6.10); RED CELL DISTRIBUTION WIDTH 13.8 % (11.5-14.5); WHITE BLOOD COUNT 5.2 X10'3 (4.5-11.0)
[2023-12-27 03:23] LABS: ALANINE AMINOTRANSFERASE 26 U/L (12-78); ALBUMIN 3.3 G/DL (3.4-5.0); ALBUMIN/GLOBULIN RATIO 0.9 (1.1-1.5); ALKALINE PHOSPHATASE 78 IU/L (46-116); ANION GAP 6 (8-16); ASPARTATE AMINO TRANSFERASE 13 U/L (10-37); BILIRUBIN,TOTAL 0.4 MG/DL (0.1-1.0); BLOOD UREA NITROGEN 30 MG/DL (7-18); BUN/CREATININE RATIO 20.7 (10.0-20.0); CALCIUM 8.7 MG/DL (8.5-10.1); CHLORIDE 96 MMOL/L (99-107); CREATININE 1.45 MG/DL (0.60-1.10); GLUCOSE 249 MG/DL (70-104); LIPASE 11 U/L (16-77); POTASSIUM 3.8 MMOL/L (3.5-5.1); SODIUM 133 MMOL/L (135-145); TOTAL CARBON DIOXIDE 31.2 MMOL/L (24-32); TOTAL PROTEIN 6.9 G/DL (6.4-8.2); eCRCL 54 ML/MIN; eGFR 53 ML/MIN
[2023-12-27 05:53] VITALS: BP 114/68; PULSE 77; RESP 18; TEMP 98; O2SAT 98
== END 2023-12-27 05:55 | disposition home or self-care (01) ==
LOC: ER 23:37
DX: K59.00 Constipation, unspecified (principal); R11.10 Vomiting, unspecified; E11.9 Type 2 diabetes mellitus without complications; K21.9 Gastro-esophageal reflux disease without esophagitis; F12.90 Cannabis use, unspecified, uncomplicated; F15.10 Other stimulant abuse, uncomplicated; Z79.4 Long term (current) use of insulin; Z85.46 Personal history of malignant neoplasm of prostate
CPT/HCPCS: 36415; 80053; 82948; 83690; 85025; 96360; 96361; 96372; 99283; J1630; J7030

== ENCOUNTER 2024-01-11 10:02 | Emergency (ER) | payer MEDICAID ==
[~2024-01-11] VITALS: Ht 172.7 cm; Wt 57.4 kg
[2024-01-11 11:31] LABS: BASOPHILS % (AUTO) 0.6 % (0-1); EOSINOPHILS # (AUTO) 0.1 X10'3 (0-0.9); HEMATOCRIT 38.2 % (42.0-52.0); HEMOGLOBIN 12.7 g/dl (14.0-17.9); LYMPHOCYTES # (AUTO) 1.7 X10'3 (1.1-4.8); LYMPHOCYTES % (AUTO) 35.9 % (21-51); MEAN CORPUSCULAR HEMOGLOBIN 28.9 PG (27.0-31.0); MEAN CORPUSCULAR HGB CONC 33.3 g/dL (33.0-36.5); MEAN CORPUSCULAR VOLUME 86.8 FL (78-98); MEAN PLATELET VOLUME 7.8 FL (7.4-10.4); MONOCYTES # (AUTO) 0.4 X10'3 (0-0.9); MONOCYTES % (AUTO) 9.1 % (2-12); NEUTROPHILS # (AUTO) 2.4 X10'3 (1.8-7.7); NEUTROPHILS % (AUTO) 51.4 % (42-75); PLATELET COUNT 259 X10'3 (140-440); RED CELL DISTRIBUTION WIDTH 13.8 % (11.5-14.5); WHITE BLOOD COUNT 4.7 X10'3 (4.5-11.0)
[2024-01-11] MEDS: normal saline 1000ML IV soln IVB ONE (11:36)
[2024-01-11 11:47] LABS: ACETONE NEGATIVE (NEGATIVE)
[2024-01-11] MEDS: haloperidol lactate 5mg/ml inj IM ONE (11:49)
[2024-01-11 11:55] LABS: ALANINE AMINOTRANSFERASE 27 U/L (12-78); ALBUMIN 3.7 G/DL (3.4-5.0); ALBUMIN/GLOBULIN RATIO 0.8 (1.1-1.5); ALKALINE PHOSPHATASE 84 IU/L (46-116); ANION GAP 6 (8-16); ASPARTATE AMINO TRANSFERASE 19 U/L (10-37); BILIRUBIN,TOTAL 0.4 MG/DL (0.1-1.0); BLOOD UREA NITROGEN 27 MG/DL (7-18); CALCIUM 9.7 MG/DL (8.5-10.1); CHLORIDE 101 MMOL/L (99-107); GLUCOSE 77 MG/DL (70-104); LIPASE 12 U/L (16-77); POTASSIUM 3.6 MMOL/L (3.5-5.1); SODIUM 140 MMOL/L (135-145); TOTAL PROTEIN 8.1 G/DL (6.4-8.2); eCRCL 75 ML/MIN; eGFR 80 ML/MIN
[2024-01-11 12:06] LABS: ACETAMINOPHEN < 2.0 UG/ML (10-30)
[2024-01-11 12:07] VITALS: TEMP 98.2
[2024-01-11] MEDS ORDERED: METO10TA3 PO (12:28)
[2024-01-11 12:41] VITALS: BP 137/98; PULSE 93; RESP 15; O2SAT 99
== END 2024-01-11 12:56 | disposition home or self-care (01) ==
LOC: ER 10:03
DX: R11.10 Vomiting, unspecified (principal); K21.9 Gastro-esophageal reflux disease without esophagitis; E11.9 Type 2 diabetes mellitus without complications; F12.90 Cannabis use, unspecified, uncomplicated; F15.90 Other stimulant use, unspecified, uncomplicated; Z79.899 Other long term (current) drug therapy; Z79.4 Long term (current) use of insulin
CPT/HCPCS: 36415; 80053; 80329; 82009; 82948; 83690; 85025; 96360; 96372; 99284; J1630; J7030

== ENCOUNTER 2024-09-19 17:37 | Emergency (ER) | payer MEDICAID ==
[~2024-09-19] VITALS: Ht 172.7 cm; Wt 67.6 kg
[2024-09-19] MEDS: bacitracin 15gm ointment TP ONE (19:25)
[2024-09-19 19:42] LABS: BILIRUBIN,URINE NEGATIVE (Neg); CLARITY,URINE SLIGHTLY CLOUDY (Clear); COLOR,URINE YELLOW (Yellow); GLUCOSE, URINE >=1000 mg/dl (Neg); KETONES,URINE NEGATIVE (Neg); LEUKOCYTE ESTERASE ,URINE NEGATIVE (Neg); NITRITES, URINE NEGATIVE (Neg); OCCULT BLOOD,URINE NEGATIVE (Neg); PROTEIN,URINE 30 mg/dl (Neg); UROBILINOGEN,URINE 0.2 E.U/dL (0.2-1.0)
[2024-09-19 19:50] LABS: UA COLLECTION TYPE URINAL
[2024-09-19 19:51] LABS: HYALINE CASTS 0-3 /LPF (NEGATIVE); MUCUS STRANDS MODERATE /LPF (Neg); SQUAMOUS EPITHELIAL CELL,UR FEW /LPF (FEW)
[2024-09-19 19:52] LABS: BACTERIA,URINE 1+ /HPF (Neg); RBC,URINE NONE SEEN /HPF (0-2); WBC,URINE 0-4 /HPF (0-4)
[2024-09-19] MEDS ORDERED: CEPH-585 PO (20:17)
[2024-09-19 20:20] VITALS: BP 138/95; PULSE 106; RESP 18; TEMP 97.8; O2SAT 100
== END 2024-09-19 20:23 | disposition home or self-care (01) ==
LOC: ER 17:38
DX: L97.129 Non-pressure chronic ulcer of left thigh with unspecified severity (principal); E11.9 Type 2 diabetes mellitus without complications; K21.9 Gastro-esophageal reflux disease without esophagitis; F12.90 Cannabis use, unspecified, uncomplicated; F15.90 Other stimulant use, unspecified, uncomplicated
CPT/HCPCS: 81001; 99283; A6410; A6449

== ENCOUNTER 2024-09-27 12:33 | Emergency (ER) | payer MEDICAID ==
[~2024-09-27] VITALS: Ht 172.7 cm; Wt 72.6 kg
[~2024-09-27 12:33] MED LIST changes: +CEPH-585 PO
[2024-09-27 13:22] LABS: BASOPHILS # (AUTO) 0.1 X10'3 (0-0.2); BASOPHILS % (AUTO) 0.6 % (0-1); EOSINOPHILS % (AUTO) 0.4 % (0-6); HEMATOCRIT 37.9 % (42.0-52.0); HEMOGLOBIN 12.8 g/dl (14.0-17.9); LYMPHOCYTES # (AUTO) 1.5 X10'3 (1.1-4.8); LYMPHOCYTES % (AUTO) 18.1 % (21-51); MEAN CORPUSCULAR HGB CONC 33.8 g/dL (33.0-36.5); MEAN CORPUSCULAR VOLUME 85.8 FL (78-98); MEAN PLATELET VOLUME 7.3 FL (7.4-10.4); MONOCYTES # (AUTO) 0.7 X10'3 (0-0.9); MONOCYTES % (AUTO) 8.7 % (2-12); NEUTROPHILS # (AUTO) 6.2 X10'3 (1.8-7.7); NEUTROPHILS % (AUTO) 72.2 % (42-75); PLATELET COUNT 348 X10'3 (140-440); RED BLOOD COUNT 4.42 X10'6 (4.70-6.10); WHITE BLOOD COUNT 8.5 X10'3 (4.5-11.0)
[2024-09-27 13:39] LABS: ALANINE AMINOTRANSFERASE 22 U/L (12-78); ALBUMIN 3.6 G/DL (3.4-5.0); ALBUMIN/GLOBULIN RATIO 0.8 (1.1-1.5); ALKALINE PHOSPHATASE 107 IU/L (46-116); ANION GAP 11 (8-16); ASPARTATE AMINO TRANSFERASE 9 U/L (10-37); BILIRUBIN,TOTAL 0.4 MG/DL (0.1-1.0); BLOOD UREA NITROGEN 22 MG/DL (7-18); BUN/CREATININE RATIO 21.2 (10.0-20.0); CALCIUM 9.2 MG/DL (8.5-10.1); CHLORIDE 98 MMOL/L (99-107); CREATININE 1.04 MG/DL (0.60-1.10); GLUCOSE 226 MG/DL (70-104); LIPASE 20 U/L (16-77); SODIUM 136 MMOL/L (135-145); TOTAL CARBON DIOXIDE 27.4 MMOL/L (24-32); TOTAL PROTEIN 7.9 G/DL (6.4-8.2); eCRCL 86 ML/MIN; eGFR 77 ML/MIN
[2024-09-27] MEDS: ringers solution, lacted 1,000 ML IV ONE ×3 (14:19→18:56)
[2024-09-27] MEDS: proCHLORperazine 10 MG/2 ml inj IV ONE (14:23)
[2024-09-27] MEDS ORDERED: iohexol 300mg/ml 100ml inj. ONE (16:02)
[2024-09-27] MEDS: OLANZapine **IM** 10 mg inj. IM ONE (16:21)
[2024-09-27] MEDS ORDERED: PROC-8 PO (17:12)
[2024-09-27] MEDS ORDERED: CAPS60CR6 TP (17:14)
[2024-09-27] MEDS: haloperidol lactate 5mg/ml inj IVH ONE (18:42)
[2024-09-27] MEDS: LIDOcaine 2% Viscous 15ml cup MM ONE (18:43)
[2024-09-27] MEDS: pantoprazole 40 MG vial IV STA (18:43)
[2024-09-27] MEDS: sucralfate 1 gm tablet PO ONE (18:43)
[2024-09-27] MEDS ORDERED: GABA300C PO (18:57)
[2024-09-27 19:03] LABS: BILIRUBIN,URINE NEGATIVE (Neg); CLARITY,URINE CLEAR (Clear); COLOR,URINE YELLOW (Yellow); GLUCOSE, URINE 500 mg/dl (Neg); KETONES,URINE 40 mg/dl (Neg); LEUKOCYTE ESTERASE ,URINE NEGATIVE (Neg); NITRITES, URINE NEGATIVE (Neg); OCCULT BLOOD,URINE NEGATIVE (Neg); PROTEIN,URINE TRACE mg/dl (Neg); UROBILINOGEN,URINE 0.2 E.U/dL (0.2-1.0)
[2024-09-27] MEDS: CAPSAICIN HP (0.1%) cream TP ONE (19:04)
[2024-09-27 19:18] LABS: UA COLLECTION TYPE CLN CATCH MIDSTREAM
[2024-09-27 19:20] LABS: BACTERIA,URINE NONE SEEN /HPF (Neg); RBC,URINE NONE SEEN /HPF (0-2); SQUAMOUS EPITHELIAL CELL,UR FEW /LPF (FEW); WBC,URINE 0-4 /HPF (0-4)
[2024-09-27 20:06] VITALS: BP 148/92; PULSE 114; RESP 16; TEMP 98.6; O2SAT 97
== END 2024-09-27 20:09 | disposition home or self-care (01) ==
LOC: ER 12:33
DX: E10.43 Type 1 diabetes mellitus with diabetic autonomic (poly)neuropathy (principal); K31.84 Gastroparesis; R11.2 Nausea with vomiting, unspecified; F12.90 Cannabis use, unspecified, uncomplicated; K21.9 Gastro-esophageal reflux disease without esophagitis; F15.90 Other stimulant use, unspecified, uncomplicated; Z72.89 Other problems related to lifestyle; Z79.899 Other long term (current) drug therapy; Z79.4 Long term (current) use of insulin; Z79.52 Long term (current) use of systemic steroids
CPT/HCPCS: 36415; 74177; 80053; 81001; 83690; 85025; 96361; 96374; 96375; 99285; J0780; J1630; J2470; J7120; Q9967; 96360

== ENCOUNTER 2024-09-29 14:20 | Emergency (ER) | payer MEDICAID ==
[~2024-09-29] VITALS: Ht 172.7 cm; Wt 61.4 kg
[~2024-09-29 14:20] MED LIST changes: +CAPS60CR6 TP; +GABA300C PO; +PROC-8 PO
[2024-09-29 17:14] LABS: BASOPHILS % (AUTO) 0.3 % (0-1); EOSINOPHILS % (AUTO) 0.3 % (0-6); HEMOGLOBIN 13.1 g/dl (14.0-17.9); LYMPHOCYTES # (AUTO) 1.8 X10'3 (1.1-4.8); LYMPHOCYTES % (AUTO) 18.1 % (21-51); MEAN CORPUSCULAR HEMOGLOBIN 28.5 PG (27.0-31.0); MEAN CORPUSCULAR HGB CONC 32.9 g/dL (33.0-36.5); MEAN CORPUSCULAR VOLUME 86.6 FL (78-98); MEAN PLATELET VOLUME 7.3 FL (7.4-10.4); MONOCYTES # (AUTO) 1.3 X10'3 (0-0.9); MONOCYTES % (AUTO) 13.1 % (2-12); NEUTROPHILS # (AUTO) 6.9 X10'3 (1.8-7.7); NEUTROPHILS % (AUTO) 68.2 % (42-75); PLATELET COUNT 407 X10'3 (140-440); RED BLOOD COUNT 4.61 X10'6 (4.70-6.10); WHITE BLOOD COUNT 10.1 X10'3 (4.5-11.0)
[2024-09-29] MEDS: OLANZapine 5mg rapidly disint. tablet PO STA (17:32)
[2024-09-29 19:09] LABS: ALANINE AMINOTRANSFERASE 21 U/L (12-78); ALBUMIN 3.9 G/DL (3.4-5.0); ALBUMIN/GLOBULIN RATIO 0.9 (1.1-1.5); ALKALINE PHOSPHATASE 103 IU/L (46-116); ANION GAP 15 (8-16); ASPARTATE AMINO TRANSFERASE 14 U/L (10-37); BILIRUBIN,TOTAL 0.4 MG/DL (0.1-1.0); BLOOD UREA NITROGEN 30 MG/DL (7-18); BUN/CREATININE RATIO 23.6 (10.0-20.0); CALCIUM 9.1 MG/DL (8.5-10.1); CHLORIDE 92 MMOL/L (99-107); CREATININE 1.27 MG/DL (0.60-1.10); GLUCOSE 223 MG/DL (70-104); POTASSIUM 3.5 MMOL/L (3.5-5.1); SODIUM 130 MMOL/L (135-145); TOTAL CARBON DIOXIDE 22.9 MMOL/L (24-32); TOTAL PROTEIN 8.1 G/DL (6.4-8.2); eCRCL 63 ML/MIN; eGFR 61 ML/MIN
[2024-09-29] MEDS: normal saline 1000ml 1,000 ML IV STA (19:24)
[2024-09-29] MEDS ORDERED: OLAN5TAB5 PO (20:38)
[2024-09-29 21:04] VITALS: BP 146/86; PULSE 109; RESP 16; TEMP 98; O2SAT 96
== END 2024-09-29 21:06 | disposition home or self-care (01) ==
LOC: ER 14:21
DX: R11.10 Vomiting, unspecified (principal); E11.9 Type 2 diabetes mellitus without complications; F12.90 Cannabis use, unspecified, uncomplicated; F15.90 Other stimulant use, unspecified, uncomplicated; K21.9 Gastro-esophageal reflux disease without esophagitis; Z79.899 Other long term (current) drug therapy; Z79.4 Long term (current) use of insulin; Z72.89 Other problems related to lifestyle
CPT/HCPCS: 36415; 80053; 82948; 85025; 96360; 99283; J7030

== ENCOUNTER 2024-10-02 05:27 | Inpatient (IN) | payer MEDICAID ==
[~2024-10-02] VITALS: Ht 172.7 cm; Wt 63.5 kg
[~2024-10-02 05:27] MED LIST changes: -CEPH-585 PO; +OLAN5TAB5 PO
[2024-10-02] MEDS: normal saline 1000ml 1,000 ML IV ONE ×2 (08:07→09:09)
[2024-10-02 08:59] LABS: ALBUMIN 3.9 G/DL (3.4-5.0); ANION GAP 14 (8-16); BLOOD UREA NITROGEN 54 MG/DL (7-18); CHLORIDE 102 MMOL/L (99-107); CREATININE 1.59 MG/DL (0.60-1.10); GLUCOSE 175 MG/DL (70-104); POTASSIUM 3.8 MMOL/L (3.5-5.1); SODIUM 141 MMOL/L (135-145); TOTAL CARBON DIOXIDE 25.2 MMOL/L (24-32); eCRCL 52 ML/MIN; eGFR 47 ML/MIN
[2024-10-02] MEDS ORDERED: acetaminophen 650mg rectal suppository RC PRN (10:35)
[2024-10-02] MEDS ORDERED: diphenhydrAMINE 25mg capsule PO PRN (10:35)
[2024-10-02] MEDS ORDERED: diphenhydrAMINE 50 mg/ml inj IV PRN (10:35)
[2024-10-02] MEDS ORDERED: ondansetron 4mg rapidly disintigrating tab PO PRN (10:35)
[2024-10-02] MEDS ORDERED: magnesium hydroxide 30ml (MOM) UD suspension PO PRN (10:35)
[2024-10-02] MEDS ORDERED: morphine 2 MG/ML inj. syringe IV PRN (10:35)
[2024-10-02] MEDS ORDERED: mag hydrox/Alum hydrox/simeth 30ml oral suspension PO PRN (10:35)
[2024-10-02] MEDS ORDERED: bisacodyl 10mg suppository rectal RC PRN (10:35)
[2024-10-02] MEDS ORDERED: acetaminophen 325mg tablet PO PRN ×2 (10:35)
[2024-10-02] MEDS ORDERED: glucagon, human recombinant 1mg kit SUBCUT PRN (10:45)
[2024-10-02] MEDS ORDERED: DEXTROSE 15 GM of carb/4 tabs (each vial/BOTTLE has 4 tablets) PO PRN ×2 (10:45)
[2024-10-02] MEDS ORDERED: dextrose 50%-water 50ml dispensing syringe IV PRN ×2 (10:45)
[2024-10-02 11:15] LABS: HEMOGLOBIN A1C 8.4 % (4.5-6.2)
[2024-10-02 11:19] LABS: MAGNESIUM 2.2 MG/DL (1.5-2.4); PHOSPHORUS 5.6 MG/DL (2.3-4.5); PRO BRAIN NATRIURETIC PEPTIDE < 30 PG/ML (0-125)
[2024-10-02 11:39] LABS: APTT 25 SECONDS (22-32); PROTHROMBIN TIME 10.4 SECONDS (9.0-12.0)
[2024-10-02] MEDS: normal saline 1000ml 1,000 ML IV SCH (11:43)
[2024-10-02] MEDS ORDERED: INSU100C10 SQ (11:54)
[2024-10-02] MEDS ORDERED: LANTUS SUBCUT (11:54)
[2024-10-02] MEDS ORDERED: GABA-530 PO (12:04)
[2024-10-02] MEDS ORDERED: PRED5DRO23 RIGHTEYE (12:10)
[2024-10-02] MEDS ORDERED: METO5TAB85 PO (12:10)
[2024-10-02] MEDS ORDERED: CEPH-585 PO (12:10)
[2024-10-02] MEDS ORDERED: POLOS RIGHTEYE (12:10)
[2024-10-02] MEDS ORDERED: ERYT1OIN6 RIGHTEYE (12:10)
[2024-10-02] MEDS ORDERED: ONDA-243 PO (12:10)
[2024-10-02] MEDS ORDERED: OMEP40CA21 PO (12:10)
[2024-10-02 12:23] LABS: BILIRUBIN,URINE NEGATIVE (Neg); CLARITY,URINE CLEAR (Clear); COLOR,URINE YELLOW (Yellow); GLUCOSE, URINE 250 mg/dl (Neg); KETONES,URINE NEGATIVE (Neg); LEUKOCYTE ESTERASE ,URINE NEGATIVE (Neg); NITRITES, URINE NEGATIVE (Neg); OCCULT BLOOD,URINE NEGATIVE (Neg); PROTEIN,URINE 30 mg/dl (Neg); UROBILINOGEN,URINE 0.2 E.U/dL (0.2-1.0)
[2024-10-02 12:26] LABS: UA COLLECTION TYPE URINAL
[2024-10-02 12:29] LABS: AMORPHOUS URATES 1+; BACTERIA,URINE FEW /HPF (Neg); RBC,URINE 0-2 /HPF (0-2); SQUAMOUS EPITHELIAL CELL,UR FEW /LPF (FEW)
[2024-10-02 12:38] LABS: URINE AMPHETAMINE SCREEN POSITIVE (Neg); URINE BARBITUATE SCREEN NEGATIVE (Neg); URINE BENZODIAZEPINES SCREEN NEGATIVE (Neg); URINE CANNABINOID SCREEN POSITIVE (Neg); URINE COCAINE SCREEN NEGATIVE (Neg); URINE METHADONE SCREEN NEGATIVE (Neg); URINE OPIATE SCREEN POSITIVE (Neg); URINE PHENCYCLIDINE SCREEN NEGATIVE (Neg)
[2024-10-02] MEDS: INSULIN LISPRO 100 UNIT/ML INSULN.PEN MULTI-DOSE SQ SCH (13:00)
[2024-10-02] MEDS ORDERED: naloxone 0.4 mg/ml inj IV PRN (17:35)
[2024-10-02 18:02] LABS: CREATINE KINASE 36 U/L (39-308)
[2024-10-02] MEDS: CefTRIAXone/D5W-Rocephin 1gm 50 ML IV SCH (18:06)
[2024-10-02 19:30] VITALS: BP 151/93; PULSE 109; RESP 18; TEMP 97.6; O2SAT 96
[2024-10-02 20:00] VITALS: RESP 18; O2SAT 98
[2024-10-02] MEDS: heparin, porcine 5000 units/ml vial SQ SCH (20:00)
[2024-10-02] MEDS: docusate sod 100mg capsule PO SCH (20:00)
[2024-10-02 22:00] VITALS: BP 183/97; PULSE 121; RESP 18; TEMP 97.3; O2SAT 95
[2024-10-02] MEDS: gabapentin 300mg capsule PO ONE (22:15)
[2024-10-02] MEDS: insulin glargine (Lantus) pen - multi-dose SQ SCH (22:28)
[2024-10-02] MEDS: ondansetron/PF 4mg/2ml inj IV PRN (22:43)
[2024-10-03] MEDS: temazepam 15mg capsule PO PRN (01:06)
[2024-10-03 01:10] VITALS: BP 143/94; PULSE 111
[2024-10-03 02:00] VITALS: BP 179/97; PULSE 106; RESP 20; TEMP 97.7; O2SAT 95
[2024-10-03 06:29] LABS: BASOPHILS # (AUTO) 0.1 X10'3 (0-0.2); BASOPHILS % (AUTO) 0.4 % (0-1); EOSINOPHILS # (AUTO) 0.2 X10'3 (0-0.9); EOSINOPHILS % (AUTO) 1.6 % (0-6); HEMATOCRIT 34.6 % (42.0-52.0); HEMOGLOBIN 11.6 g/dl (14.0-17.9); LYMPHOCYTES # (AUTO) 2.1 X10'3 (1.1-4.8); LYMPHOCYTES % (AUTO) 14.8 % (21-51); MEAN CORPUSCULAR HEMOGLOBIN 29.1 PG (27.0-31.0); MEAN CORPUSCULAR HGB CONC 33.7 g/dL (33.0-36.5); MEAN CORPUSCULAR VOLUME 86.3 FL (78-98); MEAN PLATELET VOLUME 7.5 FL (7.4-10.4); MONOCYTES # (AUTO) 0.7 X10'3 (0-0.9); MONOCYTES % (AUTO) 5.1 % (2-12); NEUTROPHILS # (AUTO) 11.4 X10'3 (1.8-7.7); NEUTROPHILS % (AUTO) 78.1 % (42-75); PLATELET COUNT 341 X10'3 (140-440); RED BLOOD COUNT 4.01 X10'6 (4.70-6.10); RED CELL DISTRIBUTION WIDTH 13.5 % (11.5-14.5); WHITE BLOOD COUNT 14.5 X10'3 (4.5-11.0)
[2024-10-03 06:55] LABS: ALANINE AMINOTRANSFERASE 16 U/L (12-78); ALBUMIN 3.1 G/DL (3.4-5.0); ALBUMIN/GLOBULIN RATIO 0.8 (1.1-1.5); ALKALINE PHOSPHATASE 95 IU/L (46-116); ANION GAP 7 (8-16); ASPARTATE AMINO TRANSFERASE 12 U/L (10-37); BILIRUBIN,TOTAL 0.4 MG/DL (0.1-1.0); BLOOD UREA NITROGEN 16 MG/DL (7-18); CHLORIDE 103 MMOL/L (99-107); CHOL/HDL RATIO 2.7 (0.00-4.99); CHOLESTEROL 159 MG/DL (0-200); GLUCOSE 225 MG/DL (70-104); HDL CHOLESTEROL 58 MG/DL (35-60); LDL CHOLESTEROL 83 MG/DL (50-100); POTASSIUM 3.9 MMOL/L (3.5-5.1); SODIUM 136 MMOL/L (135-145); TOTAL CARBON DIOXIDE 26.2 MMOL/L (24-32); TOTAL PROTEIN 7.1 G/DL (6.4-8.2); TRIGLYCERIDES 97 MG/DL (20-135); eCRCL 104 ML/MIN; eGFR > 90 ML/MIN
[2024-10-03 07:00] VITALS: BP 154/91; PULSE 108; RESP 18; TEMP 97.7; O2SAT 97
[2024-10-03] MEDS: pantoprazole 40mg Tablet.DR PO SCH (07:13)
[2024-10-03] MEDS: metoclopramide 5 mg/ml inj IV PRN (07:22)
[2024-10-03] MEDS ORDERED: pantoprazole 40mg Tablet.DR PO SCH (07:30)
[2024-10-03 08:00] VITALS: RESP 18; O2SAT 98
[2024-10-03 11:00] VITALS: BP 167/96; PULSE 110; RESP 18; TEMP 98.2; O2SAT 96
[2024-10-03] MEDS: LORazepam 0.5 MG tablet PO PRN (11:22)
[2024-10-03] MEDS: HYDROcodone/acetaminophen 5mg/325mg tablet PO PRN (12:08)
[2024-10-03 15:00] VITALS: BP 145/82; PULSE 108; RESP 15; TEMP 98.2; O2SAT 96
== END 2024-10-03 16:48 | disposition home or self-care (01) | DRG 812 ==
LOC: ER 05:28 → ED HOLD 10:42 → PCU 3S 19:24
PROVIDERS: ADMIT Family Medicine; ATTEND Family Medicine
DX: T40.411A Poisoning by fentanyl or fentanyl analogs, accidental (unintentional), initial encounter (principal); E10.42 Type 1 diabetes mellitus with diabetic polyneuropathy; N17.9 Acute kidney failure, unspecified; E10.22 Type 1 diabetes mellitus with diabetic chronic kidney disease; F15.129 Other stimulant abuse with intoxication, unspecified; F12.929 Cannabis use, unspecified with intoxication, unspecified; N18.30 Chronic kidney disease, stage 3 unspecified; I12.9 Hypertensive chronic kidney disease with stage 1 through stage 4 chronic kidney disease, or unspecified chronic kidney disease; K21.9 Gastro-esophageal reflux disease without esophagitis; N39.0 Urinary tract infection, site not specified; E83.39 Other disorders of phosphorus metabolism; E10.65 Type 1 diabetes mellitus with hyperglycemia; Z79.4 Long term (current) use of insulin; Z72.0 Tobacco use; Y92.89 Other specified places as the place of occurrence of the external cause
CPT/HCPCS: 36415; 71045; 80048; 80053; 80061; 80305; 81001; 82550; 82948; 83036; 83605; 83735; 83880; 84100; 84484; 85025; 85610; 85730; 87040; 87081; 87088; 96361; 96372; 96374; 99285; G0378; J0696; J1644; J1815; J2405; J2765; J7030

== ENCOUNTER 2024-10-22 21:18 | Emergency (ER) | payer MEDICAID ==
[~2024-10-22] VITALS: Ht 167.6 cm; Wt 62.8 kg
[~2024-10-22 21:18] MED LIST changes: -CAPS60CR6 TP; +CEPH-585 PO; +ERYT1OIN6 RIGHTEYE; +GABA-530 PO; -GABA300C PO; +INSU100C10 SQ; -INSU100I99 SQ; -INSU100V40 SQ; +LANTUS SUBCUT; +METO5TAB85 PO; -OLAN5TAB5 PO; +OMEP40CA21 PO; +ONDA-243 PO; -PANT40SU2 PO; -PROC-8 PO
[2024-10-22] MEDS: normal saline 1000ML IV soln IVB ONE (21:49)
[2024-10-22] MEDS: metoclopramide 5 mg/ml inj IV ONE (21:52)
[2024-10-22 22:29] LABS: BASOPHILS # (AUTO) 0.1 X10'3 (0-0.2); EOSINOPHILS # (AUTO) 0.1 X10'3 (0-0.9); EOSINOPHILS % (AUTO) 0.7 % (0-6); HEMATOCRIT 37.8 % (42.0-52.0); HEMOGLOBIN 12.3 g/dl (14.0-17.9); LYMPHOCYTES # (AUTO) 1.3 X10'3 (1.1-4.8); LYMPHOCYTES % (AUTO) 15.3 % (21-51); MEAN CORPUSCULAR HEMOGLOBIN 28.3 PG (27.0-31.0); MEAN CORPUSCULAR HGB CONC 32.5 g/dL (33.0-36.5); MEAN CORPUSCULAR VOLUME 87.3 FL (78-98); MEAN PLATELET VOLUME 7.8 FL (7.4-10.4); MONOCYTES # (AUTO) 0.6 X10'3 (0-0.9); MONOCYTES % (AUTO) 7.3 % (2-12); NEUTROPHILS # (AUTO) 6.3 X10'3 (1.8-7.7); NEUTROPHILS % (AUTO) 75.7 % (42-75); PLATELET COUNT 380 X10'3 (140-440); RED BLOOD COUNT 4.33 X10'6 (4.70-6.10); RED CELL DISTRIBUTION WIDTH 14.4 % (11.5-14.5); WHITE BLOOD COUNT 8.3 X10'3 (4.5-11.0)
[2024-10-22] MEDS ORDERED: iohexol 300mg/ml 100ml inj. ONE (22:31)
[2024-10-22 22:43] LABS: ALANINE AMINOTRANSFERASE 17 U/L (12-78); ALBUMIN 3.9 G/DL (3.4-5.0); ALKALINE PHOSPHATASE 105 IU/L (46-116); ANION GAP 7 (8-16); ASPARTATE AMINO TRANSFERASE 16 U/L (10-37); BILIRUBIN,TOTAL 0.2 MG/DL (0.1-1.0); BLOOD UREA NITROGEN 23 MG/DL (7-18); BUN/CREATININE RATIO 27.4 (10.0-20.0); CALCIUM 9.4 MG/DL (8.5-10.1); CHLORIDE 100 MMOL/L (99-107); CREATININE 0.84 MG/DL (0.60-1.10); GLUCOSE 158 MG/DL (70-104); POTASSIUM 3.9 MMOL/L (3.5-5.1); SODIUM 140 MMOL/L (135-145); TOTAL CARBON DIOXIDE 33.3 MMOL/L (24-32); TOTAL PROTEIN 7.7 G/DL (6.4-8.2); eCRCL 98 ML/MIN; eGFR > 90 ML/MIN
[2024-10-22 22:47] LABS: LIPASE 10 U/L (16-77); MAGNESIUM 1.7 MG/DL (1.5-2.4)
[2024-10-22 23:16] LABS: BILIRUBIN,URINE NEGATIVE (Neg); CLARITY,URINE CLEAR (Clear); COLOR,URINE YELLOW (Yellow); GLUCOSE, URINE 100 mg/dl (Neg); KETONES,URINE NEGATIVE (Neg); LEUKOCYTE ESTERASE ,URINE NEGATIVE (Neg); NITRITES, URINE NEGATIVE (Neg); OCCULT BLOOD,URINE NEGATIVE (Neg); PH,URINE 8.5 (4.8-8.0); PROTEIN,URINE TRACE mg/dl (Neg); UROBILINOGEN,URINE 0.2 E.U/dL (0.2-1.0)
[2024-10-22] MEDS: diphenhydrAMINE 50 mg/ml inj IV ONE (23:17)
[2024-10-22] MEDS: dexamethasone sod phosphate 10mg/ml inj IV STA (23:17)
[2024-10-22 23:23] LABS: UA COLLECTION TYPE VOIDED
[2024-10-22 23:24] LABS: BACTERIA,URINE FEW /HPF (Neg); RBC,URINE 0-2 /HPF (0-2); SQUAMOUS EPITHELIAL CELL,UR NONE SEEN /LPF (FEW); WBC,URINE 0-4 /HPF (0-4)
[2024-10-23 01:07] VITALS: BP 152/87; PULSE 97; RESP 16; TEMP 98.2; O2SAT 95
== END 2024-10-23 01:15 | disposition home or self-care (01) ==
LOC: ER 21:19
DX: R10.819 Abdominal tenderness, unspecified site (principal); R11.2 Nausea with vomiting, unspecified; E11.9 Type 2 diabetes mellitus without complications; K21.9 Gastro-esophageal reflux disease without esophagitis; F12.90 Cannabis use, unspecified, uncomplicated; F15.90 Other stimulant use, unspecified, uncomplicated
CPT/HCPCS: 36415; 71045; 74177; 80053; 81001; 83690; 83735; 84484; 85025; 96361; 96374; 96375; 99285; J1100; J1200; J2765; J7030; Q9967

== ENCOUNTER 2025-03-29 08:43 | Emergency (ER) | payer MEDICAID ==
[~2025-03-29] VITALS: Ht 172.7 cm; Wt 60.0 kg
[2025-03-29 09:06] VITALS: BP 100/74; PULSE 117; RESP 18; TEMP 97.6; O2SAT 98
--- NOTE | 2025-03-29 09:08 | Physician Documentation ---
History of Present Illness ~ Chief Complaint: Ear Pain Stated Complaint: EAR PAIN Time Seen by MD: 11:43 Primary Medical Doctor: [facility] DR WOODS HPI 45-year-old male presents to the ED with a complaint of two days of the right ear pain. Fever. Severe tenderness Medication Reconciliation Allergies: Coded Allergies: No Known Allergies (Unverified , 03/29/25) Scheduled Amoxicillin Trihydrate* (Amoxicillin*), 1 CAP PO Q8H Cephalexin*Monohydrate* (Keflex*), 1 CAP PO Q12H, (Reported) Erythromycin Base Opth. Ointment* (Erythromycin Opth. Ointment*), 1 APPLIC RIGHTEYE Q4HWA, (Reported) Gabapentin (Gabapentin), 3 CAP PO Q8H, (Reported) Insulin Glargine,Hum.rec.anlog* (Lantus*), 17 UNITS SUBCUT HS, (Reported) Insulin Lispro (Humalog), 0 SQ ACHS, (Reported) Metoclopramide HCl (Reglan), 1 TAB PO Q4H, (Reported) Omeprazole (Prilosec), 1 CAP PO DAILY, (Reported) Polymyxin B Sulfate/Tmp Opth* (Polytrim Ophthalmic Drops*), 1 DRP RIGHTEYE Q4H, (Reported) Prednisolone Acetate/Pf (Prednisolone Acet 1% Eye Drop), 1 DROP RIGHTEYE Q4H, (Reported) Scheduled PRN ONDANSETRON ODT 4mg tablet (Ondansetron Odt), 1 TAB PO PRN PRN for n ausea/vomiting, (Reported) Past Medical History Past Medical History: GERD, Diabetes Past Surgical History: no surgical history Patient History: FH: diabetes mellitus FH: prostate cancer Alcohol Use: Occasionally Drug Use: marijuana, methamphetamine Lives In: Home Review of Systems All Other Systems at this time: Reviewed and Negative ROS As stated above in the HPI, otherwise all systems are reviewed and negative. Physical Exam Physical Exam General: Alert, no apparent distress. HEENT: PERRL, EOMI, no injection, moist mucous membranes. Swelling in the erythema in the right ear. no Discharge Neck: Full range of motion. Neurologic: Oriented x4. Psychiatric: Normal mood and affect. Skin: Normal color, warm and dry. No edema, no ecchymosis. Progress Results/Orders Results/Orders Completed Orders - LION OREILLY NP Dexamethasone Inj (Decadron 10mg/Ml Inj) (03/29/25 11:52) Amoxicillin Capsule (Trimox Capsule) (03/29/25 11:55) Medications Received in ER Medications (Trade) Dose Ordered Sig/Rohan Route PRN Reason Start Time Stop Time Status Last Admin Dose Admin (Decadron 10mg/ ml inj) 10 mg ONCE STAT PO 03/29/25 11:52 03/29/25 11:53 DC 03/29/25 12:02 10 MG (Trimox capsule) 500 mg ONCE ONCE PO 03/29/25 11:55 03/29/25 11:56 DC 03/29/25 12:02 500 MG Vital Signs 03/29/25 03/29/25 09:06 12:06 Temp 97.6 Pulse 117 Resp 18 B/P (MAP) 100/74 Pulse Ox 98 Medical Decision Making Findings Treating for otitis media and otitis externa.. Going to have the patient follow up in the outpatient setting Departure Impression: Primary Impression: Otitis externa Additional Impression: Otitis media Condition: Stable Discharge Instructions: Otitis Media, Adult Referrals: NO PRIMARY CARE PROVIDER (PCP) Prescriptions Amoxicillin Trihydrate* (Amoxicillin*) 500 Mg Capsule 1 CAP PO Q8H for 10 Days, #30 CAP Prov: LION OREILLY SDET 03/29/25 Signature Scribe Signature: f Attestation: Scribed for Lion Oreilly Pet Caregiver by Lion Oreilly - VENKAT . 03/29/25 17:11 LION OREILLY SDET Mar 29, 2025 09:08
[2025-03-29] MEDS ORDERED: AMOX500C2 PO (11:52)
[2025-03-29] MEDS: dexamethasone sod phosphate 10mg/ml inj PO STA (12:02)
== END 2025-03-29 12:08 | disposition home or self-care (01) ==
LOC: ER 08:44
DX: H60.91 Unspecified otitis externa, right ear (principal); H66.91 Otitis media, unspecified, right ear; E11.9 Type 2 diabetes mellitus without complications; K21.9 Gastro-esophageal reflux disease without esophagitis; F12.90 Cannabis use, unspecified, uncomplicated; F15.90 Other stimulant use, unspecified, uncomplicated; Z72.89 Other problems related to lifestyle; Z79.4 Long term (current) use of insulin; Z79.899 Other long term (current) drug therapy
CPT/HCPCS: 99284; J1100

== ENCOUNTER 2025-05-07 11:38 | Emergency (ER) | payer MEDICAID ==
[~2025-05-07] VITALS: Ht 160 cm; Wt 63.6 kg
[2025-05-07 11:39] VITALS: BP 143/85; PULSE 119; RESP 16; TEMP 98; O2SAT 98
[2025-05-07] MEDS ORDERED: METO10TA3 PO (14:23)
--- NOTE | 2025-05-07 14:24 | Physician Documentation ---
History of Present Illness General Chief Complaint: Medication Refill Stated Complaint: MED REFILL Time Seen by MD: 14:07 Primary Medical Doctor: dr sandoval History of Present Illness Initial Comments 45-year-old male presents to the emergency department requesting prescription refill or Reglan. Reports that he takes recommend 3 times a day for gastroparesis associated with diabetes. Had his last dose of Reglan yesterday. Has been able to tolerate fluids today and reports that his blood sugar has been maintaining while however feels nausea at this time. No associated polyuria, polydipsia, polyphagia, fever or diarrhea. Patient reports his prescription is likely to be available for him tomorrow. Medication Reconciliation Allergies: Coded Allergies: No Known Allergies (Unverified , 03/29/25) Scheduled Cephalexin*Monohydrate* (Keflex*), 1 CAP PO Q12H, (Reported) Erythromycin Base Opth. Ointment* (Erythromycin Opth. Ointment*), 1 APPLIC RIGHTEYE Q4HWA, (Reported) Gabapentin (Gabapentin), 3 CAP PO Q8H, (Reported) Insulin Glargine,Hum.rec.anlog* (Lantus*), 17 UNITS SUBCUT HS, (Reported) Insulin Lispro (Humalog), 0 SQ ACHS, (Reported) Metoclopramide HCl (Reglan), 1 TAB PO Q4H, (Reported) Metoclopramide Hcl* (Metoclopramide Hcl*), 1 TAB PO Q8H Omeprazole (Prilosec), 1 CAP PO DAILY, (Reported) Polymyxin B Sulfate/Tmp Opth* (Polytrim Ophthalmic Drops*), 1 DRP RIGHTEYE Q4H, (Reported) Prednisolone Acetate/Pf (Prednisolone Acet 1% Eye Drop), 1 DROP RIGHTEYE Q4H, (Reported) Scheduled PRN ONDANSETRON ODT 4mg tablet (Ondansetron Odt), 1 TAB PO PRN PRN for nausea/vomiting, (Reported) Past Medical History Past Medical History: GERD, Diabetes Past Surgical History: no surgical history Alcohol Use: Occasionally Drug Use: marijuana, methamphetamine Lives In: Home Review of Systems All Other Systems at this time: Reviewed and Negative Constitutional: Denies: fever, chills GI: Reports: abdominal pain, nausea, vomiting; Denies: diarrhea, constipation Physical Exam Physical Exam Vital Signs: RN Vital Signs have been reviewed: Yes, Temperature: 98.0, Source: Temporal, Heart Rate: 119, Respiratory Rate: 16, BP: 143/85, Pulse Oximetry: 98, Weight: 63.640 Oxygen Flow Rate: 0 General Appearance: alert, WD/WN, mild distress Head: normal inspection Face: normal inspection Pupils/EOM/Fundus: PERRLA Oropharynx: normal inspection Respiratory: no respiratory distress Chest: no accessory muscle use Cardiovascular: normal peripheral pulses Gastrointestinal: normal palpation, non-tender Extremities: normal range of motion Neurologic: oriented x4, job development specialist II-XII nml as tested Motor / Sensory: no motor deficit Psychiatric: normal mood/affect Skin: normal color, warm/dry Progress Results/Orders Results/Orders Completed Orders - ALEX ACKERMAN Metoclopramide Tablet (Reglan Tablet) (05/07/25 14:25) Medications Received in ER Medications (Trade) Dose Ordered Sig/Rohan Route PRN Reason Start Time Stop Time Status Last Admin Dose Admin (Reglan tablet) 10 mg ONCE ONCE PO 05/07/25 14:25 05/07/25 14:26 DC 05/07/25 14:39 10 MG Vital Signs 05/07/25 11:39 Temp 98.0 Pulse 119 Resp 16 B/P (MAP) 143/85 Pulse Ox 98 O2 Flow Rate 0 Medical Decision Making Additional information obtaine: old records Findings 45-year-old male who has findings consistent with gastroparesis secondary to diabetes. Differential Diagnosis 45-year-old male who presents to the emergency department requesting prescription refill Reglan for gastroparesis. Provided patient a one time dose in the emergency department of Reglan and a prescription for outpatient management. Patient without concerns for DKA or HHNK, or electrolyte derangement at this time. Safely discharged from the emergency department without clinical suspicion for bowel obstruction, or other inflammatory or infectious bowel etiologies. Departure Disposition: HOME / SELF CARE / HOMELESS Impression: Primary Impression: Gastroparesis Condition: Improved Discharge Instructions: Gastroparesis Additional Instructions: Please obtain your prescription for Reglan and take as directed. Please stay well hydrated and continue to monitor your blood sugars. Return to the emergency department as needed and follow up with the primary care physician. Thank you for visiting [facility]. Referrals: NO PRIMARY CARE PROVIDER (PCP) Prescriptions Metoclopramide Hcl* (Metoclopramide Hcl*) 10 Mg Tablet 1 TAB PO Q8H, #20 TAB Prov: ALEX ACKERMAN 05/07/25 Education Educated: Patient Educated regarding: diagnosis, treatment Signature Scribe Signature: . Attestation: . ALEX ACKERMAN May 07, 2025 14:24
== END 2025-05-07 14:42 | disposition home or self-care (01) ==
LOC: ER 11:39
DX: K31.84 Gastroparesis (principal); F12.90 Cannabis use, unspecified, uncomplicated; F15.90 Other stimulant use, unspecified, uncomplicated; K21.9 Gastro-esophageal reflux disease without esophagitis; E11.9 Type 2 diabetes mellitus without complications; Z76.0 Encounter for issue of repeat prescription; Z79.899 Other long term (current) drug therapy; Z79.82 Long term (current) use of aspirin; Z72.89 Other problems related to lifestyle
CPT/HCPCS: 99283